=== PATIENT | female | born 1990 | race Caucasian/White ===

== ENCOUNTER 2018-01-24 09:50 | Emergency (ER) | payer OTHER ==
[2018-01-24 10:00] VITALS: RESP 18
--- NOTE | 2018-01-24 10:27 | ED ---
Female Urogenital HPI - General Chief complaint: Vaginal Bleeding Stated complaint: Vaginal Bleeding 7-8 weeks Time Seen by Provider: 01/24/18 10:10 Source: patient Mode of arrival: ambulatory Limitations: no limitations - History of Present Illness Initial comments: Patient is a 27-year-old who presents with a chief complaint of vaginal bleeding, approximately 6-1/2 weeks . Patient states of the bleeding started on Tuesday. She thinks that it started because she was on her feet most of the day. Since that time the bleeding become somewhat heavier. Today's first day she has worn anyone and states that she has not had to change yet. Patient cannot identify any other inciting factors. There are no aggravating or alleviating factors. The patient denies pain. Patient states that she believes her blood type is O+. Patient has a history of anxiety and depression though she does not currently take any medications secondary to her . Patient does take vitamins daily. Last Menstrual Period: 12/06/17 - Related Data Home Medications Medication Instructions Recorded Confirmed No Known Home Medications [No 01/24/18 01/24/18 Known Home Medications] Allergies Allergy/AdvReac Type Severity Reaction Status Date / Time No Known Allergies Allergy Verified 01/24/18 10:32 Review of Systems ROS Statement: Those systems with pertinent positive or pertinent negative responses have been documented in the HPI. ROS Other: All systems not noted in ROS Statement are negative. Genitourinary: Reports: other (vaginal bleeding) Past Medical History Past Medical History: No Reported History History of Any Multi-Drug Resistant Organisms: None Reported Additional Past Surgical History / Comment(s): arthroscopy rt knee Past Anesthesia/Blood Transfusion Reactions: No Reported Reaction Past Psychological History: No Psychological Hx Reported Smoking Status: Never smoker Past Alcohol Use History: None Reported Past Drug Use History: None Reported General Exam Limitations: no limitations General appearance: alert, in no apparent distress Head exam: Present: atraumatic, normocephalic Eye exam: Present: normal appearance ENT exam: Present: normal exam, mucous membranes moist Neck exam: Present: normal inspection Respiratory exam: Present: normal lung sounds bilaterally. Absent: respiratory distress, wheezes Cardiovascular Exam: Present: regular rate, normal rhythm GI/Abdominal exam: Present: soft. Absent: distended, tenderness Rectal exam: Present: deferred Extremities exam: Present: normal inspection Back exam: Present: normal inspection Neurological exam: Present: alert, oriented X3 Psychiatric exam: Present: normal affect, normal mood Skin exam: Present: warm, dry, intact Course Vital Signs 01/24/18 01/24/18 09:58 11:58 Temperature 97.5 F L 98.5 F Pulse Rate 95 94 Respiratory 18 18 Rate Blood Pressure 119/72 115/72 O2 Sat by Pulse 98 100 Oximetry Medical Decision Making - Medical Decision Making Patient presents with chief complaint vaginal bleeding. On initial evaluation, vital signs are stable, patient is in no acute distress. Patient to be evaluated basic labs, blood type, and ultrasound. 12:45 PM E evaluation this patient is unremarkable. Beta-hCG is 199. Ultrasound does not show any evidence of an intrauterine , there is no evidence at this time of ectopic . I discussed results with the patient. I discussed the options of either early , or miscarriage. Patient was instructed to follow-up with her [facility] and primary care in 1-2 days. The patient will be given a prescription for repeat beta hCG in 48 hours. Patient was instructed to return to the emergency department if her symptoms worsen or change. - Lab Data Result diagrams: 01/24/18 10:22 01/24/18 10:22 Lab Results 01/24/18 01/24/18 01/24/18 Range/Units 10:22 10:22 10:22 WBC 4.9 (3.8-10.6) k/uL RBC 5.37 (3.80-5.40) m/uL Hgb 15.8 (11.4-16.0) gm/dL Hct 44.8 (34.0-46.0) % MCV 83.6 (80.0-100.0) fL MCH 29.4 (25.0-35.0) pg MCHC 35.2 (31.0-37.0) g/dL RDW 12.2 (11.5-15.5) % Plt Count 261 (150-450) k/uL Neutrophils % 65 % Lymphocytes % 22 % Monocytes % 8 % Eosinophils % 3 % Basophils % 1 % Neutrophils # 3.2 (1.3-7.7) k/uL Lymphocytes # 1.1 (1.0-4.8) k/uL Monocytes # 0.4 (0-1.0) k/uL Eosinophils # 0.1 (0-0.7) k/uL Basophils # 0.0 (0-0.2) k/uL Sodium 141 (137-145) mmol/L Potassium 3.7 (3.5-5.1) mmol/L Chloride 106 (98-107) mmol/L Carbon Dioxide 22 (22-30) mmol/L Anion Gap 13 mmol/L BUN 12 (7-17) mg/dL Creatinine 0.72 (0.52-1.04) mg/dL Est GFR (CKD-EPI)AfAm >90 (>60 ml/min/1.73 sqM) Est GFR (CKD-EPI)NonAf >90 (>60 ml/min/1.73 sqM) Glucose 127 H (74-99) mg/dL Calcium 8.9 (8.4-10.2) mg/dL HCG, Quant mIU/mL Urine Color Urine Appearance (Clear) Urine pH (5.0-8.0) Ur Specific [place] (1.001-1.035) Urine Protein (Negative) Urine Glucose (UA) (Negative) Urine Ketones (Negative) Urine Blood (Negative) Urine Nitrite (Negative) Urine Bilirubin (Negative) Urine Urobilinogen (<2.0) mg/dL Ur Leukocyte Esterase (Negative) Urine RBC (0-5) /hpf Urine WBC (0-5) /hpf Ur Squamous Epith Cells (0-4) /hpf Urine Bacteria (None) /hpf Urine Mucus (None) /hpf Blood Type O Positive Blood Type Recheck No 01/24/18 01/24/18 Range/Units 10:22 10:31 WBC (3.8-10.6) k/uL RBC (3.80-5.40) m/uL Hgb (11.4-16.0) gm/dL Hct (34.0-46.0) % MCV (80.0-100.0) fL MCH (25.0-35.0) pg MCHC (31.0-37.0) g/dL RDW (11.5-15.5) % Plt Count (150-450) k/uL Neutrophils % % Lymphocytes % % Monocytes % % Eosinophils % % Basophils % % Neutrophils # (1.3-7.7) k/uL Lymphocytes # (1.0-4.8) k/uL Monocytes # (0-1.0) k/uL Eosinophils # (0-0.7) k/uL Basophils # (0-0.2) k/uL Sodium (137-145) mmol/L Potassium (3.5-5.1) mmol/L Chloride (98-107) mmol/L Carbon Dioxide (22-30) mmol/L Anion Gap mmol/L BUN (7-17) mg/dL Creatinine (0.52-1.04) mg/dL Est GFR (CKD-EPI)AfAm (>60 ml/min/1.73 sqM) Est GFR (CKD-EPI)NonAf (>60 ml/min/1.73 sqM) Glucose (74-99) mg/dL Calcium (8.4-10.2) mg/dL HCG, Quant 199.5 mIU/mL Urine Color Yellow Urine Appearance Clear (Clear) Urine pH 6.0 (5.0-8.0) Ur Specific [place] 1.024 (1.001-1.035) Urine Protein 1+ H (Negative) Urine Glucose (UA) Negative (Negative) Urine Ketones Negative (Negative) Urine Blood Large H (Negative) Urine Nitrite Negative (Negative) Urine Bilirubin Negative (Negative) Urine Urobilinogen 4.0 (<2.0) mg/dL Ur Leukocyte Esterase Small H (Negative) Urine RBC 13 H (0-5) /hpf Urine WBC 6 H (0-5) /hpf Ur Squamous Epith Cells 5 H (0-4) /hpf Urine Bacteria Rare H (None) /hpf Urine Mucus Many H (None) /hpf Blood Type Blood Type Recheck Disposition Clinical Impression: Vaginal bleeding Disposition: HOME SELF-CARE Condition: Good Instructions: Threatened Miscarriage (ED) Is patient prescribed a controlled substance at d/c from ED?: No Referrals: Gilbert Sawant DO [Primary Care Provider] - 1-2 days Kim Mcdowell MD [STAFF PHYSICIAN] - 1-2 days
[2018-01-24 10:29] LABS: Basophils % (A) 1 %; Eosinophils # (A) 0.1 k/uL (0-0.7); Eosinophils % (A) 3 %; HCT 44.8 % (34.0-46.0); HGB 15.8 gm/dL (11.4-16.0); Lymphocytes # (A) 1.1 k/uL (1.0-4.8); Lymphocytes % (A) 22 %; MCH 29.4 pg (25.0-35.0); MCHC 35.2 g/dL (31.0-37.0); MCV 83.6 fL (80.0-100.0); Mean Platelet Volume 7.2; Monocytes # (A) 0.4 k/uL (0-1.0); Monocytes % (A) 8 %; Neutrophils # (A) 3.2 k/uL (1.3-7.7); Neutrophils % (A) 65 %; Platelet Count 261 k/uL (150-450); RBC 5.37 m/uL (3.80-5.40); RDW 12.2 % (11.5-15.5); WBC 4.9 k/uL (3.8-10.6)
[2018-01-24 10:39] LABS: Anion Gap 13 mmol/L; Blood Urea Nitrogen 12 mg/dL (7-17); Calcium 8.9 mg/dL (8.4-10.2); Carbon Dioxide 22 mmol/L (22-30); Chloride 106 mmol/L (98-107); Glucose 127 mg/dL (74-99); Potassium 3.7 mmol/L (3.5-5.1); Sodium 141 mmol/L (137-145)
[2018-01-24 11:00] LABS: Appearance,Urine Clear (Clear); Bacteria,Urine Rare /hpf; Bilirubin,Urine Negative (Negative); Blood,Urine Large (Negative); Color,Urine Yellow; Glucose,Urine (UA) Negative (Negative); Ketones,Urine Negative (Negative); Leukocyte Esterase,Urine Small (Negative); Mucus,Urine Many /hpf; Nitrite,Urine Negative (Negative); Protein,Urine 1+ (Negative); RBC,Urine 13 /hpf (0-5); Specific Gravity,Urine 1.024 (1.001-1.035); Squamous Epithelial Cell,Urine 5 /hpf (0-4); WBC,Urine 6 /hpf (0-5)
--- NOTE | 2018-01-24 11:36 | US ---
EXAMINATION TYPE: Ultrasound OB <= 14 weeks transvaginal DATE OF EXAM: 12/20/17 COMPARISON: NONE CLINICAL HISTORY: 27-year-old female Pain. Spotting and cramping x 4 days EXAM PERFORMED: Multiple transabdominal sonographic images of the pelvis are obtained. Transvaginal scanning was medically necessary to better evaluate the anatomy. FINDINGS: EXAM MEASUREMENTS: GESTATIONAL AGE / DATING Physician Established: Not established yet Dates by LMP: (7 weeks/0 days) EDC: 09/12/2018 Dates by First Scan: This is 1st scan Dates by Current Scan for: No IUP seen at this time MATERNAL ANATOMY Uterus: 7.8 x 4.4 x 5.6cm, anteverted Endometrium: 0.7cm, tiny amount of fluid seen within endocervical canal Right Ovary: 3.1 x 1.5 x 1.9cm Left Ovary: 2.6 x 1.7 x 1.9cm Post CDS / Adnexa: no Presence of free fluid: no Presence of corpus luteal cyst: not seen Presence of subchorionic bleed: no GESTATION / SURVEY IUP: No IUP seen at this time Date of LMP: 12/06/2017 Beta HcG (if available): Not available at time of exam IMPRESSION: 1. No visualized intrauterine . Differential considerations include failed , nonvis ualized ectopic , and too early to visualize intrauterine . Note that a gestational sac should be seen by transvaginal scanning at a beta hCG of 2000. Clinical correlation is recommend ed. Recommended serial beta-hCG and ultrasound follow-up as clinically indicated. 2. Small amount of fluid within the endocervical canal.
[2018-01-24 13:10] VITALS: BP 111/62; PULSE 96; TEMP 98.3
== END 2018-01-24 13:09 | disposition home or self-care (01) ==
LOC: EC 09:50
DX: O20.9 Hemorrhage in early pregnancy, unspecified (principal); Z79.899 Other long term (current) drug therapy; Z3A.01 Less than 8 weeks gestation of pregnancy
CPT/HCPCS: 36415; 76801; 76817; 80048; 81001; 84702; 85025; 86900; 86901; 99284

== ENCOUNTER → 2018-11-15 | Outpatient (CLI) | payer OTHER ==
--- NOTE | 2018-11-15 13:18 | CT ---
EXAMINATION TYPE: CT abdomen w con DATE OF EXAM: 11/15/2018 COMPARISON: 06/02/2016 INDICATION: RUQ Abdominal pain DLP: 1019 mGycm, Automated exposure control for dose reduction was used. CONTRAST: 100 ml mL of Isovue 300. Study performed with Oral Contrast TECHNIQUE: Axial images were obtained from above the diaphragm to the pubic rami in the axial plane a t 5 mm thick sections. Reconstructed images are reviewed on the computer in the coronal plane. FINDINGS: Limited CT sections are obtained the lung bases. The lung bases are clear. CT ABDOMEN: Liver: Normal Spleen: Normal Pancreas: Normal Adrenal glands: The adrenal glands are normal. Gallbladder: Normal Kidneys: No masses are evident. No hydronephrosis is present. No suspicious cysts are identified. Delayed images were obtained through the kidneys, which remain unremarkable. Aorta: Vascular calcification is within the aorta. Inferior vena cava: Normal. Loops of bowel within the abdomen and upper pelvis are normal. There are loops of bowel which are incompletely distended or lack oral contrast limiting their evaluation. Appendix: Normal as visualized. IMPRESSIONS: 1. Unremarkable CT abdomen. 2. No suspicious changes to account for right upper quadrant pain
== END | disposition home or self-care (01) ==
LOC: RADCTMAIN 08:16
PROVIDERS: ATTEND Family Medicine
DX: R10.11 Right upper quadrant pain (principal)
CPT/HCPCS: 74160; Q9967

== ENCOUNTER → 2018-11-21 | Outpatient (CLI) | payer OTHER | END | disposition home or self-care (01) | LOC: LABWHC1 10:59 | PROVIDERS: ATTEND Obstetrics & Gynecology | DX: Z34.80 Encounter for supervision of other normal pregnancy, unspecified trimester (principal); Z3A.00 Weeks of gestation of pregnancy not specified | CPT/HCPCS: 36415; 84702 ==

== ENCOUNTER → 2018-12-14 | Outpatient (CLI) | payer OTHER ==
--- NOTE | 2018-12-14 15:54 | US ---
EXAMINATION TYPE: US pelvis complete transvag DATE OF EXAM: 12/14/2018 COMPARISON: NONE CLINICAL HISTORY: E28.8 Other ovarian dysfunction. Not having periods weight gain. TECHNIQUE: Transvaginal (TV) and Transabdominal (TA) . Transabdominal sonographic images of the pel vis were acquired. Transvaginal sonographic images were medically necessary to better assess the fol lowing anatomy: Ovaries. EXAM MEASUREMENTS: Uterus: 9.6 x 4.1 x 5.4 cm Endometrial Stripe: 0.4 cm Right Ovary: 1.7 x 1.6 x 1.9 cm Left Ovary: 2.3 x 1.7 x 2.0 cm 1. Uterus: Anteverted Hypoechoic area with vascularity 1.3 x .7 x 1.6cm. 2. Endometrium: wnl 3. Right Ovary: Follicles seen 4. Left Ovary: Follicles seen 5. Bilateral Adnexa: wnl 6. Posterior cul-de-sac: wnl IMPRESSION: 1. Probable uterine leiomyoma. 2. Small ovarian follicles.
== END | disposition home or self-care (01) ==
LOC: RADUSWWP 14:58
PROVIDERS: ATTEND Family Medicine
DX: E28.8 Other ovarian dysfunction (principal)
CPT/HCPCS: 76830; 76856

== ENCOUNTER 2019-05-29 16:44 | Emergency (ER) | payer OTHER ==
[2019-05-29] MEDS ORDERED: SODIUM CHLORIDE 0.9% 2,000 ML IV STA (17:09)
[2019-05-29] MEDS ORDERED: METOCLOPRAMIDE 5 MG/ML 2 ML VIAL IVP STA (17:17)
[2019-05-29 17:29] LABS: Basophils # (A) 0.1 k/uL (0-0.2); Basophils % (A) 1 %; Eosinophils # (A) 0.1 k/uL (0-0.7); Eosinophils % (A) 1 %; HCT 45.7 % (34.0-46.0); HGB 15.8 gm/dL (11.4-16.0); Lymphocytes # (A) 1.9 k/uL (1.0-4.8); Lymphocytes % (A) 15 %; MCH 29.9 pg (25.0-35.0); MCHC 34.5 g/dL (31.0-37.0); MCV 86.6 fL (80.0-100.0); Mean Platelet Volume 6.9; Monocytes # (A) 0.4 k/uL (0-1.0); Monocytes % (A) 3 %; Neutrophils # (A) 10.3 k/uL (1.3-7.7); Neutrophils % (A) 79 %; Platelet Count 331 k/uL (150-450); RBC 5.27 m/uL (3.80-5.40); RDW 12.7 % (11.5-15.5)
--- NOTE | 2019-05-29 17:29 | ED ---
Nausea/Vomiting/Diarrhea HPI - General Chief complaint: Nausea/Vomiting/Diarrhea Stated complaint: Not eating/drinking Time Seen by Provider: 05/29/19 16:52 Source: patient, RN notes reviewed, old records reviewed Mode of arrival: ambulatory Limitations: no limitations - History of Present Illness Initial comments: Patient is a 29-year-old female presents emergency department today with chief complaints of nausea and vomiting 3 days. Patient reports she recently found she was she is possibly 8-12 weeks. She reports her first appointment with her [facility] is tomorrow. She states she is following with Dr. Marinelli. Patient is a female. Patient reports that she has had no vaginal bleeding or discharge. She reports that she was having vomiting and became to the point where she was having dry heaves. Patient states that she has had no dysuria. - Related Data Previous Rx's Medication Instructions Recorded Cephalexin [Keflex] 500 mg PO Q6HR 3 Days #12 cap 05/29/19 Metoclopramide HCl [Reglan] 5 mg PO TID #10 tablet 05/29/19 Allergies Allergy/AdvReac Type Severity Reaction Status Date / Time acetaminophen [From Vicodin] AdvReac Abdominal Verified 05/29/19 16:58 Pain hydrocodone [From Vicodin] AdvReac Abdominal Verified 05/29/19 16:58 Pain Review of Systems ROS Statement: Those systems with pertinent positive or pertinent negative responses have been documented in the HPI. ROS Other: All systems not noted in ROS Statement are negative. Past Medical History Past Medical History: No Reported History Additional Past Medical History / Comment(s): PCOS History of Any Multi-Drug Resistant Organisms: None Reported Additional Past Surgical History / Comment(s): arthroscopy rt knee Past Anesthesia/Blood Transfusion Reactions: No Reported Reaction Past Psychological History: No Psychological Hx Reported Smoking Status: Never smoker Past Alcohol Use History: None Reported Past Drug Use History: None Reported General Exam - General Exam Comments Initial Comments: 29-year-old female. Alert and oriented. No distress. Limitations: no limitations General appearance: alert, in no apparent distress Head exam: Present: atraumatic, normocephalic, normal inspection Eye exam: Present: normal appearance, PERRL, EOMI. Absent: scleral icterus, conjunctival injection, periorbital swelling ENT exam: Present: normal exam, mucous membranes moist Neck exam: Present: normal inspection. Absent: tenderness, meningismus, lymphadenopathy Respiratory exam: Present: normal lung sounds bilaterally. Absent: respiratory distress, wheezes, rales, rhonchi, stridor Cardiovascular Exam: Present: regular rate, normal rhythm, normal heart sounds. Absent: systolic murmur, diastolic murmur, rubs, gallop, clicks GI/Abdominal exam: Present: soft, normal bowel sounds. Absent: distended, tenderness, guarding, rebound, rigid Extremities exam: Present: normal inspection, full ROM, normal capillary refill. Absent: tenderness, pedal edema, joint swelling, calf tenderness Back exam: Present: normal inspection Neurological exam: Present: alert, oriented X3, CN II-XII intact Psychiatric exam: Present: normal affect, normal mood Skin exam: Present: warm, dry, intact, normal color. Absent: rash Course Vital Signs 05/29/19 16:46 Temperature 98.1 F Pulse Rate 73 Respiratory 20 Rate Blood Pressure 116/80 O2 Sat by Pulse 99 Oximetry Medical Decision Making - Medical Decision Making Plan will feel presents emergency rubs had nausea and vomiting related to , she reports she is approximately 8-12 weeks . She states that she's been having no significant abdominal pain when she is vomiting or retching she does have some shooting pains across the abdomen. At this time patient's labwork was reviewed to show evidence of some leukocytosis. Likely secondary to vomiting. Urinalysis positive for ketones Patient had white blood cells. Urine culture will be completed. We'll start the Patient on Keflex at this time. Patient is given 2 L bolus and reevaluate states she is feeling much better. Ultrasound shows viable IUP with cardiac activity 1 59 bpm. Also considered a small subchorionic hemorrhage measuring 5.2 mm and the second one 1.2 mm. At this time she's of vaginal bleeding. I discussed she can follow-up with this with her OB. Patient states that she will follow-up with her primary care physician and [facility] as she does have an appointment tomorrow. Patient had all of her questions ANSWERED. - Lab Data Result diagrams: 05/29/19 17:00 05/29/19 17:00 Lab Results 05/29/19 05/29/19 05/29/19 Range/Units 17:00 17:00 17:00 WBC 13.0 H (3.8-10.6) k/uL RBC 5.27 (3.80-5.40) m/uL Hgb 15.8 (11.4-16.0) gm/dL Hct 45.7 (34.0-46.0) % MCV 86.6 (80.0-100.0) fL MCH 29.9 (25.0-35.0) pg MCHC 34.5 (31.0-37.0) g/dL RDW 12.7 (11.5-15.5) % Plt Count 331 (150-450) k/uL Neutrophils % 79 % Lymphocytes % 15 % Monocytes % 3 % Eosinophils % 1 % Basophils % 1 % Neutrophils # 10.3 H (1.3-7.7) k/uL Lymphocytes # 1.9 (1.0-4.8) k/uL Monocytes # 0.4 (0-1.0) k/uL Eosinophils # 0.1 (0-0.7) k/uL Basophils # 0.1 (0-0.2) k/uL Sodium 137 (137-145) mmol/L Potassium 4.1 (3.5-5.1) mmol/L Chloride 102 (98-107) mmol/L Carbon Dioxide 24 (22-30) mmol/L Anion Gap 11 mmol/L BUN 13 (7-17) mg/dL Creatinine 0.66 (0.52-1.04) mg/dL Est GFR (CKD-EPI)AfAm >90 (>60 ml/min/1.73 sqM) Est GFR (CKD-EPI)NonAf >90 (>60 ml/min/1.73 sqM) Glucose 88 (74-99) mg/dL Calcium 9.9 (8.4-10.2) mg/dL Total Bilirubin 0.6 (0.2-1.3) mg/dL AST 24 (14-36) U/L ALT 20 (9-52) U/L Alkaline Phosphatase 105 (38-126) U/L Total Protein 7.6 (6.3-8.2) g/dL Albumin 4.2 (3.5-5.0) g/dL Amylase 59 (30-110) U/L Lipase 107 (23-300) U/L Urine Color Urine Appearance (Clear) Urine pH (5.0-8.0) Ur Specific [place] (1.001-1.035) Urine Protein (Negative) Urine Glucose (UA) (Negative) Urine Ketones (Negative) Urine Blood (Negative) Urine Nitrite (Negative) Urine Bilirubin (Negative) Urine Urobilinogen (<2.0) mg/dL Ur Leukocyte Esterase (Negative) Urine RBC (0-5) /hpf Urine WBC (0-5) /hpf Ur Squamous Epith Cells (0-4) /hpf Urine Bacteria (None) /hpf Urine Mucus (None) /hpf Blood Type O Positive Blood Type Recheck O Pos Bld Type Recheck Status No 05/29/19 Range/Units 17:41 WBC (3.8-10.6) k/uL RBC (3.80-5.40) m/uL Hgb (11.4-16.0) gm/dL Hct (34.0-46.0) % MCV (80.0-100.0) fL MCH (25.0-35.0) pg MCHC (31.0-37.0) g/dL RDW (11.5-15.5) % Plt Count (150-450) k/uL Neutrophils % % Lymphocytes % % Monocytes % % Eosinophils % % Basophils % % Neutrophils # (1.3-7.7) k/uL Lymphocytes # (1.0-4.8) k/uL Monocytes # (0-1.0) k/uL Eosinophils # (0-0.7) k/uL Basophils # (0-0.2) k/uL Sodium (137-145) mmol/L Potassium (3.5-5.1) mmol/L Chloride (98-107) mmol/L Carbon Dioxide (22-30) mmol/L Anion Gap mmol/L BUN (7-17) mg/dL Creatinine (0.52-1.04) mg/dL Est GFR (CKD-EPI)AfAm (>60 ml/min/1.73 sqM) Est GFR (CKD-EPI)NonAf (>60 ml/min/1.73 sqM) Glucose (74-99) mg/dL Calcium (8.4-10.2) mg/dL Total Bilirubin (0.2-1.3) mg/dL AST (14-36) U/L ALT (9-52) U/L Alkaline Phosphatase (38-126) U/L Total Protein (6.3-8.2) g/dL Albumin (3.5-5.0) g/dL Amylase (30-110) U/L Lipase (23-300) U/L Urine Color Yellow Urine Appearance Cloudy H (Clear) Urine pH 6.5 (5.0-8.0) Ur Specific [place] 1.030 (1.001-1.035) Urine Protein 1+ H (Negative) Urine Glucose (UA) Negative (Negative) Urine Ketones 3+ H (Negative) Urine Blood Negative (Negative) Urine Nitrite Negative (Negative) Urine Bilirubin Negative (Negative) Urine Urobilinogen 3.0 (<2.0) mg/dL Ur Leukocyte Esterase Large H (Negative) Urine RBC 2 (0-5) /hpf Urine WBC 7 H (0-5) /hpf Ur Squamous Epith Cells 17 H (0-4) /hpf Urine Bacteria Few H (None) /hpf Urine Mucus Many H (None) /hpf Blood Type Blood Type Recheck Bld Type Recheck Status - Radiology Data Radiology results: report reviewed Single viable intrauterine with cardiac Mr. Lloyd is 1 59 bpm. Evidence for a small subchorionic hemorrhagic foci one measuring partly 5.2 mm and the other 1.2 mm. Disposition Clinical Impression: Nausea/vomiting in , Asymptomatic bacteriuria during Disposition: HOME SELF-CARE Condition: Good Instructions (If sedation given, give patient instructions): Acute Nausea and Vomiting (ED) Additional Instructions: Please use medication as discussed. Please follow up with OB and family doctor if symptoms have not improved over the next two days. Please return to the emergency room if your symptoms increase or worsen or for any other concerns. Prescriptions: Cephalexin [Keflex] 500 mg PO Q6HR 3 Days #12 cap Metoclopramide HCl [Reglan] 5 mg PO TID #10 tablet Is patient prescribed a controlled substance at d/c from ED?: No Referrals: Gilbert Sawant DO [Primary Care Provider] - 1-2 days Time of Disposition: 19:11
[2019-05-29 17:38] LABS: ALT 20 U/L (9-52); AST 24 U/L (14-36); African American GFR (CKD) >90 (>60 ml/min/1.73 sqM); Albumin 4.2 g/dL (3.5-5.0); Alkaline Phosphatase 105 U/L (38-126); Amylase 59 U/L (30-110); Anion Gap 11 mmol/L; Blood Urea Nitrogen 13 mg/dL (7-17); Calcium 9.9 mg/dL (8.4-10.2); Carbon Dioxide 24 mmol/L (22-30); Chloride 102 mmol/L (98-107); Glucose 88 mg/dL (74-99); Potassium 4.1 mmol/L (3.5-5.1); Sodium 137 mmol/L (137-145); Total Bilirubin 0.6 mg/dL (0.2-1.3); Total Protein 7.6 g/dL (6.3-8.2)
[2019-05-29 18:09] LABS: Appearance,Urine Cloudy (Clear); Color,Urine Yellow; Glucose,Urine (UA) Negative (Negative); PH, Urine 6.5 (5.0-8.0); Protein,Urine 1+ (Negative)
[2019-05-29 18:10] LABS: Bacteria,Urine Few /hpf; Bilirubin,Urine Negative (Negative); Blood,Urine Negative (Negative); Ketones,Urine 3+ (Negative); Leukocyte Esterase,Urine Large (Negative); Mucus,Urine Many /hpf; Nitrite,Urine Negative (Negative); RBC,Urine 2 /hpf (0-5); Squamous Epithelial Cell,Urine 17 /hpf (0-4); WBC,Urine 7 /hpf (0-5)
--- NOTE | 2019-05-29 18:52 | US ---
EXAMINATION TYPE: US OB limited DATE OF EXAM: 05/29/2019 COMPARISON: US, no comparison for this . CLINICAL HISTORY: Assess IUP heart tones. LMP unknown. . EXAM PERFORMED: Transabdominal (TA) GESTATIONAL AGE / DATING Physician Established: (Not yet established. LMP is unknown. No growth performed on today?s study per order. SURVEY HEART RATE: 159 bpm RHYTHM: Normal Incidental finding: Hypoechoic areas seen right and left of gestational sac. Right hypoechoic area me asures: 3.7 x 1.7 x 1.6 cm. Left hypoechoic area measures: 1.6 x 1.5 x 1.0 cm. IMPRESSION: SINGLE VIABLE INTRAUTERINE WITH CARDIAC ACTIVITY MEASURED AT 159 BPM. Evidence suggesting small subchorionic hemorrhagic foci, one measuring approximately 5.2 mL and the o ther measuring approximately 1.2 mL.
[2019-05-29 19:15] VITALS: PULSE 78; TEMP 98.3
[2019-05-29 19:28] VITALS: BP 117/80; RESP 14
== END 2019-05-29 19:29 | disposition home or self-care (01) ==
LOC: EC 16:44
DX: O21.9 Vomiting of pregnancy, unspecified (principal); O98.811 Other maternal infectious and parasitic diseases complicating pregnancy, first trimester; R82.71 Bacteriuria; O99.89 Other specified diseases and conditions complicating pregnancy, childbirth and the puerperium; R10.9 Unspecified abdominal pain; R82.4 Acetonuria; O20.8 Other hemorrhage in early pregnancy; Z88.5 Allergy status to narcotic agent; Z88.6 Allergy status to analgesic agent; Z3A.08 8 weeks gestation of pregnancy
CPT/HCPCS: 36415; 86900; 86901; 80053; 82150; 83690; 85025; 81001; 76815; 99284; 96374; 96361 ×2; J2765

== ENCOUNTER → 2019-06-11 | Outpatient (CLI) | payer OTHER ==
--- NOTE | 2019-06-11 17:16 | US ---
EXAMINATION TYPE: Ultrasound OB <= 14 week transvaginal DATE OF EXAM: 06/11/2019 2:49 PM COMPARISON: 05/29/2019 CLINICAL HISTORY: 29-year-old female [id number] Confirm Dates. Patient has no bleeding or cramping. EXAM PERFORMED: Transvaginal (TV) and Transabdominal (TA) FINDINGS: EXAM MEASUREMENTS: GESTATIONAL AGE / DATING Physician Established: Not yet established LMP: 02/23/19 Dates by LMP: (15 weeks/3 days) EDC: 11/30/2019 Dates by First Scan: Dating not performed on 1st scan Dates by Current Scan for: (13 weeks/ 0 days) EDC: 12/17/19 MATERNAL ANATOMY Uterus: 12.9 x 7.7 x 9.3cm Right Ovary: 2.9 x 1.6 x 2.3cm Left Ovary: obscured by bowel gas and increasing uterine size Post CDS / Adnexa: wnl Presence of free fluid: wnl Two subchorionic bleeds, seen on previous ultrasound as well, 1.)5.1 x 1.2 x 1.6cm (previously 3.7 x 1.7 x 1.6 cm), 2.) 1.3 x 0.6 x 1.0cm (previously 1.6 x 1.5 x 1.0 cm) GESTATION / SURVEY CRL: 6.7 (13 weeks/0 days) Yolk Sac (normal less than 6mm): not seen Heart Rate: 155 bpm Rhythm: Normal IUP: Viable IUP Date of LMP: 02/23/19 Beta HcG (if available): Not available IMPRESSION: 1. Single live intrauterine with estimated gestational age of 15 weeks 3 days by LMP. [facility] ultrasound biometry is smaller by 2 weeks and 3 days (at 13 weeks 0 days) by crown-rump length. 2. Two subchorionic bleeds redemonstrated, the largest measures 5.1 cm versus 3.7 cm, previously. The second is slightly smaller at 1.3 cm versus 1.6 cm, previously. 3. Appropriate continued follow-up recommended. 4. Complete survey recommended at 18-20 weeks.
== END | disposition home or self-care (01) ==
LOC: RADUSWWP 13:56
PROVIDERS: ATTEND Obstetrics & Gynecology
DX: Z36.89 Encounter for other specified antenatal screening (principal); Z3A.20 20 weeks gestation of pregnancy
CPT/HCPCS: 76801; 76817

== ENCOUNTER 2019-09-04 11:00 | Outpatient (CLI) | payer OTHER ==
[2019-09-04 12:37] LABS: Appearance,Urine Clear (Clear); Bilirubin,Urine Negative (Negative); Blood,Urine Negative (Negative); Color,Urine Yellow; Glucose,Urine (UA) 3+ (Negative); Ketones,Urine Negative (Negative); Leukocyte Esterase,Urine Negative (Negative); Nitrite,Urine Negative (Negative); Protein,Urine Trace (Negative); Urobilinogen,Urine <2.0 mg/dL (<2.0)
[2019-09-04 13:11] VITALS: BP 118/64; PULSE 95; RESP 16; TEMP 97.8
--- NOTE | 2019-09-19 00:33 | P.MSEPDOC ---
Presenting Problems - Arrival Data Date of Arrival on Unit: 09/04/19 Time of Arrival on Unit: 11:00 Mode of Transport: Ambulatory - Complaint OB-Reason for Admission/Chief Complaint: Other Medical History - Information : 7 Para: 4 Term: 4 : 0 Abortions: Spontaneous or Elective: 2 Number of Living Children: 4 - Gestational Age Gestational Age by EDITH (wks/days): 25 Weeks and 1 Days Review of Systems - Review of Systems Constitutional: No problems Breast: No problems ENT: No problems Cardiovascular: No problems Respiratory: No problems Gastrointestinal: No problems Genitourinary: No problems Musculoskeletal: No problems Neurological: No problems Skin: No problems Vital Signs - Temperature Temperature: 97.8 F Temperature Source: Oral - Pulse Right Brachial Pulse Rate: 95 Pulse Assessment Method: Automatic Cuff - Respirations Respiratory Rate: 16 Oxygen Delivery Method: Room Air O2 Sat by Pulse Oximetry: 99 - Blood Pressure Right Arm Blood Pressure: 118/64 Blood Pressure Mean: 82 Blood Pressure Source: Automatic Cuff Medical Screen Scoring (Pre) - Cervical Exam Membranes: Intact - Uterine Contractions Frequency: N/A Duration: N/A Intensity: N/A - Maternal Vital Signs Maternal Temperature: N/A Signs of Preeclampsia: N/A Maternal Respirations: N/A - Maternal Trauma Maternal Trauma: N/A - Assessment - Baby A Baseline FHR: 140 Heart Rate - NICHD Category: Category I (Normal) = 0 NST: Reactive Position: N/A Station: N/A - Total Score - Baby A Total Score - Baby A: 0 - Total Score - Baby B Total Score - Baby B: 0 - Total Score - Baby C Total Score - Baby C: 0 - Level of Risk - Baby A Level of Risk - Baby A: Low (0-5) - Level of Risk - Baby B Level of Risk - Baby B: Low (0-5) - Level of Risk - Baby C Level of Risk - Baby C: Low (0-5) Physician Notification (Pre) - Physician Notified Physician Notified Date: 09/04/19 Physician Notified Time: 12:46 New Order Received: Yes - Notification Comment Comment: Dr. Marinelli in dept. Reviewed strip. Report given. VS WNL. FFN collected. Vag exam of closed/thick/high. UA sent. Dr. Marinelli reviewed UA results. Orders recieved to d/c pt to home. Disposition - Disposition OB Disposition: Discharge to home Discharge Date: 09/04/19 Discharge Time: 12:52 I agree with the RN Medical Screening Exam: Yes Risk & Benefit of care provided described in d/c instruction: Yes Diagnosis: PAIN, UNSPECIFIED
== END 2019-09-04 13:00 | disposition home or self-care (01) ==
LOC: FBPOP 11:00
PROVIDERS: ATTEND Obstetrics & Gynecology
DX: O99.89 Other specified diseases and conditions complicating pregnancy, childbirth and the puerperium (principal); R52 Pain, unspecified; Z3A.25 25 weeks gestation of pregnancy
CPT/HCPCS: 81003; G0463; 99213

== ENCOUNTER 2019-09-27 23:45 | Inpatient (IN) | payer OTHER ==
[2019-09-28] MEDS: LACTATED RINGERS 1,000 ML IV SCH ×3 (00:43→23:35)
[2019-09-28 01:24] LABS: Appearance,Urine Clear (Clear); Bacteria,Urine Occasional /hpf; Bilirubin,Urine Negative (Negative); Blood,Urine Negative (Negative); Color,Urine Light Yellow; Glucose,Urine (UA) Negative (Negative); Ketones,Urine Negative (Negative); Leukocyte Esterase,Urine Small (Negative); Mucus,Urine Rare /hpf; Nitrite,Urine Negative (Negative); Protein,Urine Negative (Negative); RBC,Urine <1 /hpf (0-5); Specific Gravity,Urine 1.008 (1.001-1.035); Squamous Epithelial Cell,Urine 3 /hpf (0-4); Urobilinogen,Urine <2.0 mg/dL (<2.0); WBC,Urine 2 /hpf (0-5)
[2019-09-28] MEDS ORDERED: INDOMETHACIN 25 MG CAP PO SCH (02:00)
[2019-09-28] MEDS ORDERED: INDOMETHACIN 25 MG CAP PO PRN (02:00)
[2019-09-28] MEDS ORDERED: ACETAMINOPHEN TAB 325 MG TAB PO PRN (06:08)
[2019-09-28 06:18] LABS: Glucose,Whole Blood 101 mg/dL (75-99)
[2019-09-28] MEDS: BETAMET ACET-BETAMETH SOD PHOS 6 MG/ML VIAL IM SCH (06:42)
--- NOTE | 2019-09-28 08:01 | US ---
EXAMINATION TYPE: US OB >= 14 wk fetus DATE OF EXAM: 09/28/2019 COMPARISON: First trimester ultrasound June 11, 2019. CLINICAL HISTORY: labor; gestational diabetes; TECHNIQUE: Transabdominal (TA) GESTATIONAL AGE / DATING Physician Established: (28 weeks/4 days) EDC: 12/17/2019 Dates by First Scan: (28 weeks/4 days) EDC: 12/17/2019 Dates by Current Scan: (28 weeks/5 days) EDC: 12/16/2019 Beta HCG (if available): NA SURVEY IUP: Single PLACENTA: Anterior PREVIA: No Previa HOA: 16.5 cm Normal CERVICAL LENGTH (transabdominal: norm > 3.0cm): 3.5 cm BIOMETRY PRESENTATION: Vertex LIE: Longitudinal BPD: 7.4 cm 29 weeks / 4 days HC: 27.0 cm 29 weeks / 3 days AC: 24.3 cm 28 weeks / 4 days FL: 5.5 cm 29 weeks / 0 days ESTIMATED WEIGHT IN GRAMS: 1297.0 grams ESTIMATED WEIGHT IN LBS/OZ: 2 lbs. 14 oz. WEIGHT PERCENTAGE BASED ON ESTABLISHED DATES: 48.0% HC/AC: 1.11 Normal FL/AC: 22.57 Normal HEART RATE: 137 bpm RHYTHM: Normal Single, viable, IUP,(28 weeks/5 days, EDC: 12/16/2019, HR 137bpm; cervix length is wnl. Single live intrauterine gestation redemonstrated. Normal cephalad presentation on current study seen . No suspicious cervical thinning. No placenta previa. Amniotic fluid index calculated within normal limits. biometry measurements are congruent and thought within normal limits. IMPRESSION: As above.
[2019-09-28] MEDS: INDOMETHACIN 25 MG CAP PO SCH ×3 (08:18→19:33)
--- NOTE | 2019-09-28 08:32 | P.HPOB ---
History of Present Illness H&P Date: 09/28/19 Chief Complaint: contractions 29 year old presents at 28 weeks 4 days with contractions. fibronectin was negative. She was gilson every 3-5 minutes. heart tones 130 with moderate variability and reactive. Cervix is dilated 1-2 cm, uneffaced, -3 station. Review of Systems All systems: negative Constitutional: Denies chills, Denies fever Eyes: denies blurred vision, denies pain Ears, nose, mouth and throat: Denies headache, Denies sore throat Cardiovascular: Denies chest pain, Denies shortness of breath Respiratory: Denies cough Gastrointestinal: Denies abdominal pain, Denies diarrhea, Denies nausea, Denies vomiting Genitourinary: Denies dysuria, Denies hematuria Musculoskeletal: Denies myalgias Integumentary: Denies pruritus, Denies rash Neurological: Denies numbness, Denies weakness Psychiatric: Denies anxiety, Denies depression Endocrine: Denies fatigue, Denies weight change Past Medical History Past Medical History: No Reported History Additional Past Medical History / Comment(s): PCOS. Obstetric history: She has had one elective and one spontaneous , she's had 4 vaginal deliveries. This is her seventh . She's had care with me since beginning . She was initially diagnosed with gestational diabetes has not been timing from yet that she was supposed to go today. History of Any Multi-Drug Resistant Organisms: None Reported Additional Past Surgical History / Comment(s): arthroscopy rt knee. exploratory laparotomy Past Anesthesia/Blood Transfusion Reactions: No Reported Reaction Past Psychological History: Anxiety, Depression Smoking Status: Never smoker Past Alcohol Use History: None Reported Past Drug Use History: None Reported - Past Family History Father Family Medical History: Diabetes Mellitus Medications and Allergies Allergies Allergy/AdvReac Type Severity Reaction Status Date / Time acetaminophen [From Vicodin] AdvReac Abdominal Verified 09/28/19 00:00 Pain hydrocodone [From Vicodin] AdvReac Abdominal Verified 09/28/19 00:00 Pain Exam Osteopathic Statement: *. No significant issues noted on an osteopathic s tructural exam other than those noted in the History and Physical/Consult. Vital Signs Temp Pulse Resp BP Pulse Ox 09/28/19 00:01 97.3 F L 95 16 134/88 99 Intake and Output 01/06/0809/28/19 09/28/19 22:59 06:59 14:59 Other: Weight 97.069 kg Heart: Regular rate and rhythm Lungs: Clear to auscultation bilaterally Abdomen: Soft, nontender Extremities: Negative Homans sign Results Abnormal Lab Results - Last 24 Hours (Table) 09/28/19 09/28/19 Range/Units 00:08 06:16 POC Glucose (mg/dL) 101 H (75-99) mg/dL Ur Leukocyte Esterase Small H (Negative) Urine Bacteria Occasional H (None) /hpf Urine Mucus Rare H (None) /hpf Assessment and Plan (1) labor Current Visit: Yes Status: Acute Code(s): O60.00 - LABOR WITHOUT DELIVERY, UNSPECIFIED TRIMESTER SNOMED Code(s): 5473206 Plan: 1. Patient admitted to [facility] [place] Dr. Kim for labor. She was started on a course of Indocin 50 mg every 6 hours for 7 doses. An HOA was done today fluid level is 16 cm. She was given a dose of Celestone and will have another dose in 24 hours. I will be following her sugars though they are likely be elevated due to the Celestone. I will call [facility] and discuss her diabetes and her sugars as well as her labor condition. Dr. Winters is covering for me this weekend and will likely be the one to continue managing care on this patient.
[2019-09-28 10:22] LABS: Glucose,Whole Blood 170 mg/dL (75-99)
[2019-09-28] MEDS: PRENATAL VIT-IRON-FOLIC ACID 1 EACH CAP PO SCH (15:06)
[2019-09-28 15:31] LABS: African American GFR (CKD) >90 (>60 ml/min/1.73 sqM); Non-African American GFR(CKD) >90 (>60 ml/min/1.73 sqM)
[2019-09-28 16:15] LABS: Glucose,Whole Blood 146 mg/dL (75-99)
[2019-09-28] MEDS: INSULIN ASPART (NovoLOG) 100 UNIT/ML VIAL SQ SCH ×4 (16:51→22:44)
[2019-09-28 19:24] LABS: Glucose,Whole Blood 164 mg/dL (75-99)
[2019-09-28 22:28] LABS: Glucose,Whole Blood 171 mg/dL (75-99)
[2019-09-29] MEDS: INDOMETHACIN 25 MG CAP PO SCH ×3 (03:01→14:33)
[2019-09-29] MEDS: BETAMET ACET-BETAMETH SOD PHOS 6 MG/ML VIAL IM SCH (06:49)
[2019-09-29 06:54] LABS: Glucose,Whole Blood 120 mg/dL (75-99)
--- NOTE | 2019-09-29 07:48 | P.PN ---
Progress Note - Text Progress Note Date: 09/29/19 Hospital day #2. Patient is 28-5/7 weeks gestation admitted yesterday with contractions. Patient was given Indocin and her contractions have subsided. Patient also was recently diagnosed with gestational diabetes and reviewing her blood sugars indicates that she needed insulin therapy. Patient also was given Celestone which unfortunately affect her serum glucose. Reviewing her sugar shows her postprandials are elevated 160-170 and her fasting blood sugar this morning was 120. For this reason, I'm going to begin NPH insulin tonight. I also revised her sliding scale in an effort to lower her postprandial blood sugars. Patient needs diabetic instruction and education and unfortunately this is not available at this time therefore she will be continued to be watched as an inpatient in an effort to control her blood sugars. I had a long discussion with the patient about concerns and need for glucose regulation and she completely understands. So in summary, plan is to be institute NPH and to increase her sliding scale insulin today. We'll attempt to get diabetic education instruction.
[2019-09-29 09:36] LABS: Glucose,Whole Blood 143 mg/dL (75-99)
[2019-09-29] MEDS: INSULIN ASPART (NovoLOG) 100 UNIT/ML VIAL SQ SCH ×4 (09:41→22:13)
[2019-09-29] MEDS: PRENATAL VIT-IRON-FOLIC ACID 1 EACH CAP PO SCH (09:44)
[2019-09-29 14:26] LABS: Glucose,Whole Blood 194 mg/dL (75-99)
[2019-09-29 15:01] VITALS: BMI 35.6
[2019-09-29 20:11] LABS: Glucose,Whole Blood 195 mg/dL (75-99)
[2019-09-29] MEDS ORDERED: INSULIN NPH 300 UNIT/3 ML VIAL SQ SCH (22:00)
[2019-09-29 22:12] LABS: Glucose,Whole Blood 191 mg/dL (75-99)
[2019-09-30] MEDS: LACTATED RINGERS 1,000 ML IV SCH (01:30)
[2019-09-30 07:19] LABS: Glucose,Whole Blood 115 mg/dL (75-99)
--- NOTE | 2019-09-30 07:25 | P.PN ---
Progress Note - Text Progress Note Date: 09/30/19 Patient is resting without new complaints. Unfortunately her blood sugars still remained high she is now 24 hours out from her Celestone injection. Fasting blood sugar today is 115 and I did start NPH yesterday at 10 units going to increase that to 14 units. This may require further adjustments. Her postprandial blood sugars were routinely 190s yesterday, I am going to continue the increased sliding-scale from yesterday however they continue to be that high today she may need additional insulin. Patient received some education yesterday and she is doing better with learning how to give herself insulin. We'll continue inpatient hospitalization and glucose regulation.
[2019-09-30 09:03] VITALS: RESP 16
[2019-09-30 11:18] LABS: Glucose,Whole Blood 119 mg/dL (75-99)
[2019-09-30] MEDS: INSULIN ASPART (NovoLOG) 100 UNIT/ML VIAL SQ SCH ×2 (11:33→15:48)
[2019-09-30] MEDS: PRENATAL VIT-IRON-FOLIC ACID 1 EACH CAP PO SCH (11:37)
[2019-09-30 15:38] LABS: Glucose,Whole Blood 101 mg/dL (75-99)
[2019-09-30 15:49] VITALS: BP 109/63; PULSE 91; TEMP 98.4
[2019-09-30 20:03] LABS: Glucose,Whole Blood 114 mg/dL (75-99)
[2019-09-30] MEDS ORDERED: INSULIN NPH 300 UNIT/3 ML VIAL SQ SCH (22:00)
[2019-09-30 22:15] LABS: Glucose,Whole Blood 125 mg/dL (75-99)
[2019-10-01 05:43] LABS: Glucose,Whole Blood 101 mg/dL (75-99)
[2019-10-01 11:00] LABS: Glucose,Whole Blood 114 mg/dL (75-99)
--- NOTE | 2019-10-01 12:59 | P.DS ---
Providers Date of admission: 09/28/19 06:06 Expected date of discharge: 10/01/19 Attending physician: La Marinelli Primary care physician: La Marinelli - Discharge Diagnosis(es) (1) labor Current Visit: Yes Status: Acute Hospital Course: Patient was admitted for labor and the 28 week gestation. She had 2 doses of steroids and a course of Indocin. She is also been recently diagnosed with gestational diabetes but was unable to see MFM yet. We did start her on some nighttime insulin and a sliding scale. Her appointment with maternal- medicine is next week. While she was here she did speak with the community educator, and was taught how to give herself insulin and check her sugar properly. She is being discharged on 14 units of Humulin at night, and a sliding scale Humalog. She'll be discharged home today after she has stopped gilson and her sugars are well-controlled. Plan - Discharge Summary New Discharge Prescriptions: New Insulin NPH [humuLIN N] 14 unit SQ HS@2200 #1 vial INSULIN ASPART (NovoLOG) [NovoLOG (formulary)] 0 unit SQ ACHS #1 vial Discharge Medication List INSULIN ASPART (NovoLOG) [NovoLOG (formulary)] 0 unit SQ ACHS #1 vial 10/01/19 [Rx] Insulin NPH [humuLIN N] 14 unit SQ HS@2200 #1 vial 10/01/19 [Rx] Follow up Appointment(s)/Referral(s): La Marinelli DO [Primary Care Provider] - 1 Week Discharge Disposition: HOME SELF-CARE
== END 2019-10-01 13:45 | disposition home or self-care (01) | DRG 833 ==
LOC: FBPOP 23:45 → 4FBP 09-28 06:06
PROVIDERS: ADMIT Obstetrics & Gynecology; ATTEND Obstetrics & Gynecology
DX: O60.03 Preterm labor without delivery, third trimester (principal); O24.414 Gestational diabetes mellitus in pregnancy, insulin controlled; Z3A.28 28 weeks gestation of pregnancy; Z83.3 Family history of diabetes mellitus
CPT/HCPCS: 59025; 76805; 81001; 82565; 82731; 83036; 96360; 99214

== ENCOUNTER → 2019-10-05 | Outpatient (CLI) | payer OTHER ==
--- NOTE | 2019-10-05 11:28 | US ---
EXAMINATION TYPE: US venous doppler duplex UE LT DATE OF EXAM: 10/05/2019 COMPARISON: NONE CLINICAL HISTORY: M79.602 Pain in L arm. Pain left arm, IV 5 days ago at left lower arm SIDE PERFORMED: left Grayscale, color doppler, spectral doppler imaging performed of the deep veins of the left upper extr emity. There is normal flow, compressibility and vascular waveforms. Left Arm: No evidence of DVT. Superficial thrombus noted left cephalic lower arm IMPRESSION: 1. No sonographic evidence of deep venous thrombosis within the left upper extremity. 2. Superficial venous thrombosis seen within the left cephalic vein.
== END | disposition home or self-care (01) ==
LOC: RADUSWWP 10:22
PROVIDERS: ATTEND Obstetrics & Gynecology
DX: I82.612 Acute embolism and thrombosis of superficial veins of left upper extremity (principal)

== ENCOUNTER 2019-10-30 15:28 | Outpatient (CLI) | payer OTHER ==
[2019-10-30 16:03] LABS: Glucose,Whole Blood 93 mg/dL (75-99)
[2019-10-30 16:17] LABS: Appearance,Urine Clear (Clear); Bilirubin,Urine Negative (Negative); Blood,Urine Negative (Negative); Color,Urine Yellow; Glucose,Urine (UA) Negative (Negative); Ketones,Urine 4+ (Negative); Leukocyte Esterase,Urine Moderate (Negative); Mucus,Urine Many /hpf; Nitrite,Urine Negative (Negative); Protein,Urine 1+ (Negative); RBC,Urine 2 /hpf (0-5); Specific Gravity,Urine 1.031 (1.001-1.035); Squamous Epithelial Cell,Urine 2 /hpf (0-4); WBC,Urine 7 /hpf (0-5)
[2019-10-30] MEDS: LACTATED RINGERS 1,000 ML IV SCH ×2 (17:26→19:31)
[2019-10-30 17:40] LABS: HCT 42.9 % (34.0-46.0); HGB 14.5 gm/dL (11.4-16.0); MCH 30.8 pg (25.0-35.0); MCHC 33.9 g/dL (31.0-37.0); MCV 90.8 fL (80.0-100.0); Platelet Count 275 k/uL (150-450); RBC 4.72 m/uL (3.80-5.40); RDW 12.6 % (11.5-15.5); WBC 11.4 k/uL (3.8-10.6)
[2019-10-30 19:16] LABS: Band Neutrophils % 7 %; Eosinophils # (M) 0.11 k/uL (0-0.7); Lymphocytes # (M) 1.71 k/uL (1.0-4.8); Monocytes # (M) 1.03 k/uL (0-1.0); Neutrophils % (M) 68 %; Nucleated Red Blood Cells 0 /100 WBC (0-0); Total Cells Counted 100
[2019-10-30] MEDS ORDERED: OSELTAMIVIR 75 MG CAP PO STA (19:16)
[2019-10-30 19:41] VITALS: RESP 18
--- NOTE | 2019-10-30 20:09 | P.HPOB ---
History of Present Illness H&P Date: 10/30/19 Chief Complaint: Upper respiratory symptoms. This patient is a 29-year-old 7 para 4 female estimated date of confinement 12/17/2019 estimated gestational age 33-2/7 weeks who presented to labor and delivery with approximately 3 days of upper respiratory symptoms incl uding cough and shortness of breath. Patient states that her symptoms began Tuesday evening and became significantly worse on Tuesday such that she was unable to keep anything down. Patient did get a little better on Tuesday however today continues to have respiratory symptoms. Patient did not contact her primary virtual assistant for advertisers, Dr. Marinelli and discontinued her insulin for the last 48 hours due to concerns that she was not eating. Patient has not been checking her blood sugars as well. Patient was initially diagnosed with insulin- dependent diabetes at 28 weeks. At that time she was admitted for dilation of 1-2 cm dilated and received Celestone and institution of insulin therapy. Patient has been followed by Dr. Marinelli and by maternal medicine. Diabetes has been controlled by maternal medicine she states she's taking 22 units of insulin (NPH) in the evening and 8 units of regular after meals. On admission here patient had 4+ ketones thought to be dehydrated and had a positive influenza A swab. Patient was having irregularly irregular contractions and initial exam was 3 cm dilated by the nurse however repeat exam 1 hour later showed her to be 3-4 cm dilated. On my exam patient is 3-4 cm dilated soft and the presenting part is palpable but very high and ballotable. Patient has a history of one delivery at 36 weeks, her other 3 vaginal deliveries were all at term. heart tones are 150s and reactive without decelerations. Patient's pulse ox is normal. Temperature is 99.2 and she is slightly tachycardic. Review of Systems Constitutional: Reports as per HPI Respiratory: Reports as per HPI Genitourinary: Reports Menstruation: Reports amenorrhea Past Medical History Past Medical History: Diabetes Mellitus Additional Past Medical History / Comment(s): PCOS. Obstetric history: She has had one elective and one spontaneous , she's had 4 vaginal deliveries. History of Any Multi-Drug Resistant Organisms: None Reported Additional Past Surgical History / Comment(s): arthroscopy rt knee Past Anesthesia/Blood Transfusion Reactions: No Reported Reaction Past Psychological History: Depression Smoking Status: Never smoker Past Alcohol Use History: None Reported Past Drug Use History: None Reported - Past Family History Father Family Medical History: Diabetes Mellitus Medications and Allergies Home Medications Medication Instructions Recorded Confirmed Type INSULIN ASPART (NovoLOG) [NovoLOG 0 unit SQ ACHS #1 vial 10/01/19 10/30/19 Rx (formulary)] Insulin NPH [humuLIN N] 14 unit SQ HS@2200 #1 vial 10/01/19 10/30/19 Rx Allergies Allergy/AdvReac Type Severity Reaction Status Date / Time acetaminophen [From Vicodin] AdvReac Abdominal Verified 10/30/19 15:49 Pain hydrocodone [From Vicodin] AdvReac Abdominal Verified 10/30/19 15:49 Pain Exam Vital Signs Temp Pulse Resp BP Pulse Ox 10/30/19 19:36 99.2 F 128 H 18 120/72 98 Intake and Output 10/30/19 10/30/19 10/30/19 06:59 14:59 22:59 Intake Total 1000 Balance 1000 Intake: IV 1000 Invasive Line 1 1000 Other: # Voids 1 Weight 96.162 kg - OBG Physical Exam Abdomen: bowel sounds normal, no diffuse tenderness, no bruit present, no guarding noted, no hepatomegaly, no splenomegaly, no mass Vulva: both: normal Vagina: normal moisture, no discharge Cervix: no lesion (Cervix is 3-4 cmsoft and uneffaced presenting part is vertex and ballotable.), no discharge Uterus: enlarged Results Influenza A swab was positive. blood work shows she is O+, rubella immune, RPR nonreactive, hepatitis B is negative, Glucola was 216. Result Diagrams: 10/30/19 17:25 Abnormal Lab Results - Last 24 Hours (Table) 10/30/19 10/30/19 10/30/19 Range/Units 15:30 17:25 17:25 WBC 11.4 H (3.8-10.6) k/uL Neutrophils # (Manual) 8.50 H (1.3-7.7) k/uL Monocytes # (Manual) 1.03 H (0-1.0) k/uL Urine Protein 1+ H (Negative) Urine Ketones 4+ H (Negative) Ur Leukocyte Esterase Moderate H (Negative) Urine WBC 7 H (0-5) /hpf Urine Mucus Many H (None) /hpf Influenza Type A RNA Detected H (Not Detectd) Assessment and Plan Assessment: This is a 29-year-old 7 para 4 female 33-2/7 weeks gestation with known insulin-dependent gestational diabetes and history of pre-mature cervical dilation. Patient's had 3 days of respiratory symptoms and now has a positive influenza A swab and 4+ ketones consistent with dehydration. Patient is also having some contractions most likely secondary to dehydration. I have already given her a dose of Tamiflu 75 mg. I'm giving her IV hydration. Due to the cervical dilation and concern for delivery less than 35 weeks I have con tacted a tertiary facility ([facility]) and they have accepted her in transfer in the event she were to go on to deliver. At this point she is stable for transfer and I do not have concerns that she will deliver in transport. I have contacted the resident physician, Dr. Mckinney, and he has contacted his attending who is accepted her in transfer. I did emphasize the patient my concerns that she has not checked her blood sugar a couple days and she understands that when she is sick her blood sugars can fluctuate even more significantly. Currently her blood sugar is stable. Plan is transfer by EMS for concern for delivery, continued treatment of influenza A, and glucose regulation. (1) 33 weeks gestation of Current Visit: Yes Status: Acute Code(s): Z3A.33 - 33 WEEKS GESTATION OF SNOMED Code(s): 61970674 (2) Gestational diabetes Current Visit: No Status: Acute Code(s): O24.419 - GESTATIONAL DIABETES MELLITUS IN , UNSP CONTROL SNOMED Code(s): 23794614 (3) labor Current Visit: No Status: Acute Code(s): O60.00 - LABOR WITHOUT DELIVERY, UNSPECIFIED TRIMESTER SNOMED Code(s): 8549207 (4) Influenza A Current Visit: Yes Status: Acute Code(s): J10.1 - FLU DUE TO OTH IDENT INFLUENZA VIRUS W OTH RESP MANIFEST SNOMED Code(s): 957791887 (5) Dehydration Current Visit: Yes Status: Acute Code(s): E86.0 - DEHYDRATION SNOMED Code(s): 76783963
--- NOTE | 2019-10-30 20:15 | P.DS ---
Providers Expected date of discharge: 10/30/19 Attending physician: Ricardo Winters Primary care physician: Stated None - Discharge Diagnosis(es) (1) 33 weeks gestation of Current Visit: Yes Status: Acute (2) Gestational diabetes Current Visit: No Status: Acute (3) labor Current Visit: No Status: Acute (4) Influenza A Current Visit: Yes Status: Acute (5) Dehydration Current Visit: Yes Status: Acute Hospital Course: Please see dictated H&P for the intimate details of this patient's admission. Brief summary this is a 29-year-old 7 para 4 female 33-2/7 weeks gestation admitted to labor and delivery with 3 days of upper respiratory symptoms and inability to keep anything down. Patient was found to have a positive influenza a swab and also having contractions. Cervix on admission was 3 cm dilated and did change 3-4 cm on repeat exam. Due to the patient's prematurity, was felt best to transfer her to maternal- medicine/[facility] for care in the event of delivery. Patient was given a dose of Tamiflu. Patient was given IV hydration. heart tones are reassuring without decelerations. Patient's felt to be stable at the time of discharge to [facility]. Patient Condition at Discharge: Stable Plan - Discharge Summary New Discharge Prescriptions: No Action Insulin NPH [humuLIN N] 14 unit SQ HS@2200 #1 vial INSULIN ASPART (NovoLOG) [NovoLOG (formulary)] 0 unit SQ ACHS #1 vial Discharge Medication List INSULIN ASPART (NovoLOG) [NovoLOG (formulary)] 0 unit SQ ACHS #1 vial 10/01/19 [Rx] Insulin NPH [humuLIN N] 14 unit SQ HS@2200 #1 vial 10/01/19 [Rx] Discharge Disposition: OTHER INSTITUTION NOT DEFINED
[2019-10-30 20:17] LABS: Glucose,Whole Blood 95 mg/dL (75-99)
[2019-10-30 21:09] VITALS: BP 111/67; PULSE 129; TEMP 97.9
--- NOTE | 2019-10-31 06:42 | P.MSEPDOC ---
Presenting Problems - Arrival Data Date of Arrival on Unit: 10/30/19 Time of Arrival on Unit: 15:35 Mode of Transport: Wheelchair - Complaint OB-Reason for Admission/Chief Complaint: Acute Nausea/Vomiting Comment: n/v, congestion Medical History - Information : 7 Para: 4 Term: 3 : 1 Abortions: Spontaneous or Elective: 2 Number of Living Children: 4 - Gestational Age Gestational Age by EDITH (wks/days): 33 Weeks and 1 Days Review of Systems - Review of Systems Constitutional: Fever, Fatigue Breast: No problems ENT: Cough, Nasal congestion Cardiovascular: No problems Respiratory: No problems Gastrointestinal: No problems Genitourinary: No problems Musculoskeletal: No problems Neurological: No problems Skin: No problems Vital Signs - Temperature Temperature: 97.9 F Temperature Source: Temporal Artery Scan - Pulse Right Pulse Rate: 129 Pulse Assessment Method: Pulse Oximetry - Respirations Respiratory Rate: 18 - Blood Pressure Right Arm Blood Pressure: 111/67 Blood Pressure Mean: 81 Blood Pressure Source: Automatic Cuff Medical Screen Scoring (Pre) - Cervical Exam Dilation: 1-3 cm = 1 Effacement: More than 50% = 2 Membranes: Intact - Uterine Contractions Frequency: < 36 weeks = 6 Duration: > 40 seconds = 2 Intensity: N/A - Maternal Vital Signs Maternal Temperature: N/A Maternal Blood Pressure: N/A Signs of Preeclampsia: N/A Maternal Respirations: N/A - Maternal Trauma Maternal Trauma: N/A - Assessment - Baby A Baseline FHR: 145 Heart Rate - NICHD Category: Category I (Normal) = 0 NST: Reactive Position: N/A - Total Score - Baby A Total Score - Baby A: 11 - Total Score - Baby B Total Score - Baby B: 11 - Total Score - Baby C Total Score - Baby C: 11 - Level of Risk - Baby A Level of Risk - Baby A: High (10+) - Level of Risk - Baby B Level of Risk - Baby B: High (10+) - Level of Risk - Baby C Level of Risk - Baby C: High (10+) Physician Notification (Pre) - Physician Notified Physician Notified Date: 10/30/19 Physician Notified Time: 16:56 - Notification Comment Comment: per previous shift, dr winters was called, reported on pts c/o, s/sx. orders given. see obix. 2100- d/c via ems for transfer to [facility] Medical Screen Scoring (Post) - Cervical Exam Dilation: 1-3 cm = 1 Effacement: More than 50% = 2 - Uterine Contractions Frequency: < 36 weeks = 6 Duration: > 40 seconds = 2 Intensity: N/A - Maternal Vital Signs Maternal Temperature: N/A Maternal Blood Pressure: N/A Signs of Preeclampsia: N/A Maternal Respirations: N/A - Maternal Trauma Maternal Trauma: N/A - Assessment - Baby A Heart Rate: 150 Heart Rate - NICHD Category: Category I (Normal) = 0 NST: Reactive Position: N/A Station: N/A - Total Score Total Score - Baby A: 11 Total Score - Baby B: 11 Total Score - Baby C: 11 - Post Treatment Level of Risk Post Treatment Level of Risk - Baby A: High (10+) Physician Notification (Post) - Physician Notified Physician Notified Date: 10/30/19 Physician Notified Time: 19:30 Physician/Practitioner Notified:: kandi New Order Received: Yes - Notification Comment Comment: This RN took over care at 1900. Dr Winters has been here since that time. FHT strip reviewed. SVE performed by Dr Winters. Previous shift reported on pts s/sx of influenza, +A swab, lab results, n/v since tuesday, 4+ ketones. Plan is to transfer pt Disposition - Disposition OB Disposition: Transfer to other dept./facility Transferred to:: [facility] [place] Discharge Date: 10/30/19 Discharge Time: 21:03 I agree with the RN Medical Screening Exam: Yes Risk & Benefit of care provided described in d/c instruction: Yes Diagnosis: LABOR WITHOUT DELIVERY, THIRD TRIMESTER (See dictated H&P and transfer summary.)
== END 2019-10-30 21:03 | disposition other institution (70) ==
LOC: FBPOP 15:28
PROVIDERS: ATTEND Obstetrics & Gynecology
DX: O60.03 Preterm labor without delivery, third trimester (principal); Z3A.33 33 weeks gestation of pregnancy
CPT/HCPCS: 59025; 96360; 96361; 85025; 81001; 87502; G0463; 99214

== ENCOUNTER → 2019-11-07 | Outpatient (CLI) | payer OTHER ==
[2019-11-07 18:39] VITALS: BP 115/69; PULSE 108; RESP 18; TEMP 96.6
[2019-11-07 19:18] LABS: Calcium Oxalate Crystals,Urine Many /hpf; Mucus,Urine Moderate /hpf; Squamous Epithelial Cell,Urine 1 /hpf (0-4); WBC,Urine 2 /hpf (0-5)
[2019-11-07 19:28] LABS: Appearance,Urine Clear (Clear); Color,Urine Yellow
[2019-11-07 19:29] LABS: Bilirubin,Urine Negative (Negative); Blood,Urine Negative (Negative); Glucose,Urine (UA) Negative (Negative); Ketones,Urine Negative (Negative); Leukocyte Esterase,Urine Negative (Negative); Nitrite,Urine Negative (Negative); Protein,Urine 1+ (Negative)
--- NOTE | 2019-11-18 10:03 | P.MSEPDOC ---
Presenting Problems - Arrival Data Date of Arrival on Unit: 11/07/19 Time of Arrival on Unit: 17:40 Mode of Transport: Ambulatory - Complaint OB-Reason for Admission/Chief Complaint: Possible Onset of Labor Medical History - Information : 7 Para: 4 Term: 4 : 0 Abortions: Spontaneous or Elective: 2 Number of Living Children: 4 - Gestational Age Gestational Age by EDITH (wks/days): 34 Weeks and 3 Days - History Complications: GDM Review of Systems - Review of Systems Constitutional: No problems Breast: No problems ENT: No problems Cardiovascular: No problems Respiratory: No problems Gastrointestinal: No problems Genitourinary: No problems Musculoskeletal: No problems Neurological: No problems Skin: No problems Vital Signs - Temperature Temperature: 96.6 F Temperature Source: Temporal Artery Scan - Pulse Right Brachial Pulse Rate: 108 Pulse Assessment Method: Automatic Cuff - Respirations Respiratory Rate: 18 Oxygen Delivery Method: Room Air O2 Sat by Pulse Oximetry: 98 - Blood Pressure Right Arm Blood Pressure: 115/69 Blood Pressure Mean: 84 Blood Pressure Source: Automatic Cuff Medical Screen Scoring (Pre) - Cervical Exam Dilation: 4-7 cm = 2 Membranes: Intact - Uterine Contractions Frequency: N/A Duration: N/A Intensity: N/A - Maternal Vital Signs Maternal Temperature: N/A Maternal Blood Pressure: N/A Signs of Preeclampsia: N/A Maternal Respirations: N/A - Maternal Trauma Maternal Trauma: N/A - Assessment - Baby A Baseline FHR: 125 Heart Rate - NICHD Category: Category I (Normal) = 0 NST: Reactive Position: N/A Station: N/A - Total Score - Baby A Total Score - Baby A: 2 - Total Score - Baby B Total Score - Baby B: 2 - Total Score - Baby C Total Score - Baby C: 2 - Level of Risk - Baby A Level of Risk - Baby A: Low (0-5) - Level of Risk - Baby B Level of Risk - Baby B: Low (0-5) - Level of Risk - Baby C Level of Risk - Baby C: Low (0-5) Physician Notification (Pre) - Physician Notified Physician Notified Date: 11/07/19 Physician Notified Time: 18:00 New Order Received: Yes - Notification Comment Comment: Order for UA obtained Medical Screen Scoring (Post) - Uterine Contractions Frequency: > 5 minutes apart = 1 Duration: N/A Intensity: N/A - Maternal Vital Signs Maternal Temperature: N/A Maternal Blood Pressure: N/A Signs of Preeclampsia: N/A Maternal Respirations: N/A - Maternal Trauma Maternal Trauma: N/A - Assessment - Baby A Heart Rate: 130 Heart Rate - NICHD Category: Category I (Normal) = 0 NST: Reactive Position: N/A Station: N/A - Total Score Total Score - Baby A: 1 Total Score - Baby B: 1 Total Score - Baby C: 1 - Post Treatment Level of Risk Post Treatment Level of Risk - Baby A: Low (0-5) Post Treatment Level of Risk - Baby B: Low (0-5) Post Treatment Level of Risk - Baby C: Low (0-5) Physician Notification (Post) - Physician Notified Physician Notified Date: 11/07/19 Physician Notified Time: 19:35 Physician/Practitioner Notified:: Demetria Spoke With: Demetria New Order Received: Yes (Discharge) Disposition - Disposition OB Disposition: Discharge to home Discharge Date: 11/07/19 Discharge Time: 19:50 I agree with the RN Medical Screening Exam: Yes Risk & Benefit of care provided described in d/c instruction: Yes Diagnosis: FALSE LABOR BEFORE 37 COMPLETED WEEKS OF GEST, THIRD TRI
== END | disposition home or self-care (01) ==
LOC: FBPOP 17:37
PROVIDERS: ATTEND Obstetrics & Gynecology
DX: O47.03 False labor before 37 completed weeks of gestation, third trimester (principal); Z3A.34 34 weeks gestation of pregnancy
CPT/HCPCS: 59025; 81001; G0463; 99213

== ENCOUNTER 2019-11-19 12:31 | Outpatient (CLI) | payer OTHER ==
[2019-11-19 13:10] LABS: Glucose,Whole Blood 96 mg/dL (75-99)
[2019-11-19 13:25] VITALS: BP 112/68; RESP 18; TEMP 95.5
[2019-11-19 15:19] VITALS: PULSE 92
--- NOTE | 2019-11-20 20:23 | P.MSEPDOC ---
Presenting Problems - Arrival Data Date of Arrival on Unit: 11/19/19 Time of Arrival on Unit: 12:31 Mode of Transport: Ambulatory - Complaint OB-Reason for Admission/Chief Complaint: Possible Onset of Labor, Rule Out SROM Comment: C/O contractions and possible ROM. Medical History - Information : 7 Para: 4 Term: 4 : 0 Abortions: Spontaneous or Elective: 2 Number of Living Children: 4 - Gestational Age Gestational Age by EDITH (wks/days): 36 Weeks and 0 Days Review of Systems - Review of Systems Constitutional: No problems Breast: No problems ENT: No problems Cardiovascular: No problems Respiratory: No problems Gastrointestinal: No problems Genitourinary: No problems Musculoskeletal: No problems Neurological: No problems Skin: No problems Vital Signs - Temperature Temperature: 95.5 F Temperature Source: Temporal Artery Scan - Pulse Left Pulse Rate: 92 Pulse Assessment Method: Pulse Oximetry - Respirations Respiratory Rate: 18 Oxygen Delivery Method: Room Air O2 Sat by Pulse Oximetry: 99 - Blood Pressure Right Arm Blood Pressure: 112/68 Blood Pressure Mean: 82 Blood Pressure Source: Automatic Cuff Medical Screen Scoring (Pre) - Cervical Exam Dilation: 4-7 cm = 2 Effacement: More than 50% = 2 Membranes: Intact - Uterine Contractions Frequency: > 5 minutes apart = 1 Duration: N/A Intensity: N/A - Maternal Vital Signs Maternal Temperature: N/A Maternal Blood Pressure: N/A Signs of Preeclampsia: Nausea/Vomiting = 1 Maternal Respirations: N/A - Maternal Trauma Maternal Trauma: N/A - Assessment - Baby A Baseline FHR: 125 Heart Rate - NICHD Category: Category I (Normal) = 0 NST: Reactive Position: N/A Station: N/A - Total Score - Baby A Total Score - Baby A: 6 - Total Score - Baby B Total Score - Baby B: 6 - Total Score - Baby C Total Score - Baby C: 6 - Level of Risk - Baby A Level of Risk - Baby A: Medium (6-9) - Level of Risk - Baby B Level of Risk - Baby B: Medium (6-9) - Level of Risk - Baby C Level of Risk - Baby C: Medium (6-9) Physician Notification (Pre) - Physician Notified Physician Notified Date: 11/19/19 Physician Notified Time: 13:00 New Order Received: Yes (Cervical recheck in 1hr.) Medical Screen Scoring (Post) - Cervical Exam Dilation: 4-7 cm = 2 Effacement: More than 50% = 2 Membranes: Intact - Uterine Contractions Frequency: > or = 36 weeks =2 Duration: N/A Intensity: N/A - Maternal Vital Signs Maternal Temperature: N/A Maternal Blood Pressure: N/A Signs of Preeclampsia: N/A Maternal Respirations: N/A - Pain Assessment Pain Location and Character: Back, Abdomen, Pelvic Pain Scale Used: Numeric (1 - 10) Pain Intensity: 5 Pain Management Goal: 3 Pain Description: *Acute, Pressure, Sharp, Tightness Pain Radiation Location: none Pain Frequency: Intermittent Pain Duration Units: Minutes Pain Behavior: Vocalization Pain Aggravating Factors: Contractions - Maternal Trauma Maternal Trauma: N/A - Assessment - Baby A Heart Rate: 125 Heart Rate - NICHD Category: Category I (Normal) = 0 NST: Reactive Position: N/A Station: N/A - Total Score Total Score - Baby A: 6 Total Score - Baby B: 6 Total Score - Baby C: 6 - Post Treatment Level of Risk Post Treatment Level of Risk - Baby A: Medium (6-9) Post Treatment Level of Risk - Baby B: Medium (6-9) Post Treatment Level of Risk - Baby C: Medium (6-9) Physician Notification (Post) - Physician Notified Physician Notified Date: 11/19/19 Physician Notified Time: 14:24 Physician/Practitioner Notified:: Judy Spoke With: Judy New Order Received: Yes (Discharge home with no cervical change) - Notification Comment Comment: No cervical change. Pt sent home with follow up instructions. Pt verbalizes understanding. Paperwork given. Disposition - Disposition OB Disposition: Discharge to home Discharge Date: 11/19/19 Discharge Time: 15:00 I agree with the RN Medical Screening Exam: Yes Risk & Benefit of care provided described in d/c instruction: Yes Diagnosis: FALSE LABOR BEFORE 37 COMPLETED WEEKS OF GEST, THIRD TRI
== END 2019-11-19 15:00 | disposition home or self-care (01) ==
LOC: FBPOP 12:31
PROVIDERS: ATTEND Obstetrics & Gynecology
DX: O47.03 False labor before 37 completed weeks of gestation, third trimester (principal); Z3A.36 36 weeks gestation of pregnancy
CPT/HCPCS: 59025; 84112; G0463; 99213

== ENCOUNTER 2019-11-29 23:53 | Outpatient (CLI) | payer OTHER ==
[2019-11-30 00:13] LABS: Glucose,Whole Blood 110 mg/dL (75-99)
[2019-11-30 01:27] VITALS: BP 124/73; PULSE 112; RESP 15; TEMP 97
--- NOTE | 2019-11-30 05:56 | P.MSEPDOC ---
Presenting Problems - Arrival Data Date of Arrival on Unit: 11/29/19 Time of Arrival on Unit: 23:53 Mode of Transport: Ambulatory - Complaint OB-Reason for Admission/Chief Complaint: Possible Onset of Labor Comment: Pt states that she has been having contractions since this afternoon Medical History - Information : 7 Para: 4 Term: 4 : 0 Abortions: Spontaneous or Elective: 2 Number of Living Children: 4 - Gestational Age Gestational Age by EDITH (wks/days): 37 Weeks and 4 Days - History Complications: GDM Review of Systems - Review of Systems Constitutional: No problems Breast: No problems ENT: No problems Cardiovascular: No problems Respiratory: No problems Gastrointestinal: No problems Genitourinary: No problems Musculoskeletal: No problems Neurological: No problems Skin: No problems Vital Signs - Temperature Temperature: 97 F Temperature Source: Temporal Artery Scan - Pulse Pulse Oximetery Pulse Rate: 112 Pulse Assessment Method: Automatic Cuff - Respirations Respiratory Rate: 15 Oxygen Delivery Method: Room Air O2 Sat by Pulse Oximetry: 98 - Blood Pressure Right Arm Blood Pressure: 124/73 Blood Pressure Mean: 90 Blood Pressure Source: Automatic Cuff Medical Screen Scoring (Pre) - Cervical Exam Dilation: 4-7 cm = 2 Effacement: More than 50% = 2 Membranes: Intact - Uterine Contractions Frequency: > 5 minutes apart = 1 Duration: N/A Intensity: N/A - Maternal Vital Signs Maternal Temperature: N/A Maternal Blood Pressure: N/A Signs of Preeclampsia: N/A Maternal Respirations: N/A - Maternal Trauma Maternal Trauma: N/A - Assessment - Baby A Baseline FHR: 125 Heart Rate - NICHD Category: Category I (Normal) = 0 NST: Reactive Position: N/A Station: N/A - Total Score - Baby A Total Score - Baby A: 5 - Total Score - Baby B Total Score - Baby B: 5 - Total Score - Baby C Total Score - Baby C: 5 - Level of Risk - Baby A Level of Risk - Baby A: Low (0-5) - Level of Risk - Baby B Level of Risk - Baby B: Low (0-5) - Level of Risk - Baby C Level of Risk - Baby C: Low (0-5) Physician Notification (Pre) - Physician Notified Physician Notified Date: 11/30/19 Physician Notified Time: 01:00 New Order Received: Yes Disposition - Disposition OB Disposition: Discharge to home, Written follow up instructions reviewed Discharge Date: 11/30/19 Discharge Time: 01:16 I agree with the RN Medical Screening Exam: Yes Risk & Benefit of care provided described in d/c instruction: Yes Diagnosis: FALSE LABOR AT OR AFTER 37 COMPLETED WEEKS OF GESTATION (Patient presented to labor and delivery complaining of contractions. Patient was found not to be in active labor and heart tones were category 1. Of note patient is a gestational diabetic on insulin is not checked her blood sugar since Tuesday has not been taking her insulin.)
== END 2019-11-30 01:29 | disposition home or self-care (01) ==
LOC: FBPOP 23:53
PROVIDERS: ATTEND Obstetrics & Gynecology
DX: O47.1 False labor at or after 37 completed weeks of gestation (principal); Z3A.37 37 weeks gestation of pregnancy
CPT/HCPCS: 59025; G0463; 99213

== ENCOUNTER 2019-12-10 18:09 | Inpatient (IN) | payer OTHER ==
[2019-12-10] MEDS ORDERED: OXYTOCIN 10 UNIT/ML 1 ML VIAL IM PRN (18:21)
[2019-12-10] MEDS ORDERED: METHYLERGONOVINE 0.2 MG/ML 1 ML AMP IM PRN (18:21)
[2019-12-10] MEDS ORDERED: TERBUTALINE 1 MG/ML VIAL SQ PRN (18:21)
[2019-12-10] MEDS ORDERED: LIDOCAINE 0.5% (PF) 5 MG/ML (50 ML SDV) SQ PRN (18:21)
[2019-12-10] MEDS ORDERED: CARBOPROST TROMETHAMINE 250 MCG/ML 1 ML AMP IM PRN (18:21)
[2019-12-10] MEDS ORDERED: LACTATED RINGERS 1,000 ML IV SCH (18:30)
[2019-12-10] MEDS ORDERED: BUTORPHANOL 1 MG/ML 1 ML VIAL IV ONE (18:35)
[2019-12-10 18:57] LABS: Glucose,Whole Blood 102 mg/dL (75-99)
[2019-12-10 19:08] LABS: Basophils # (A) 0.1 k/uL (0-0.2); Basophils % (A) 0 %; Eosinophils # (A) 0.1 k/uL (0-0.7); Eosinophils % (A) 1 %; HCT 45.5 % (34.0-46.0); HGB 15.1 gm/dL (11.4-16.0); Lymphocytes # (A) 2.7 k/uL (1.0-4.8); Lymphocytes % (A) 17 %; MCHC 33.2 g/dL (31.0-37.0); MCV 90.3 fL (80.0-100.0); Mean Platelet Volume 9.9; Monocytes # (A) 0.7 k/uL (0-1.0); Monocytes % (A) 5 %; Neutrophils # (A) 11.7 k/uL (1.3-7.7); Neutrophils % (A) 75 %; Platelet Count 332 k/uL (150-450); RBC 5.03 m/uL (3.80-5.40); RDW 12.3 % (11.5-15.5); WBC 15.5 k/uL (3.8-10.6)
--- NOTE | 2019-12-10 19:23 | P.HPOB ---
History of Present Illness H&P Date: 12/10/19 Chief Complaint: Spontaneous rupture of membranes This is a 29-year-old female 7 para 4 with an estimated date of confinement of 12/17/2019, estimated gestational age of 39-0/7 weeks, who presents to labor and delivery with complaints of spontaneous rupture of membra keyon at approximately 1715. She states she had a large gush of clear fluid. She has been feeling irregular contractions that have become stronger since arrival. Her course has been complicated by gestational diabetes on insulin. She has not taken her insulin approximately 1 week because of difficulties getting her insulin. care has been with Dr. Marinelli. She has also followed with maternal medicine due to the gestational diabetes. She does have some issues with labor at about 33 weeks and was transferred to [facility] in [place] at that time. labs: Hepatitis B surface antigen-negative RPR-nonreactive Rubella-immune Blood type-O+ Antibody screen-negative Abdomen globus-14.1 Toxoplasma screen-negative Random glucose-100 Obstetrical ultrasound-normal anatomy One hour Glucola-216 Obstetrical history: . History of 4 vaginal deliveries at term. All of her pregnancies were complicated by gestational diabetes diet controlled. She also has a history of 2 miscarriages. Social history: Single. Unemployed. Review of Systems Constitutional: Denies chills, Denies fever Eyes: denies blurred vision, denies pain Ears, nose, mouth and throat: Denies headache, Denies sore throat Cardiovascular: Denies chest pain, Denies shortness of breath Respiratory: Denies cough Gastrointestinal: Reports abdominal pain (Contractions), Denies diarrhea, Denies nausea, Denies vomiting Genitourinary: Reports pelvic pain, Reports Musculoskeletal: Reports low back pain Integumentary: Denies pruritus, Denies rash Neurological: Denies numbness, Denies weakness Psychiatric: Denies anxiety, Denies depression Past Medical History Past Medical History: Asthma, Diabetes Mellitus Additional Past Medical History / Comment(s): PCOS. Obstetric history: She has had one elective and one spontaneous , she's had 4 vaginal deliveries. History of Any Multi-Drug Resistant Organisms: None Reported Additional Past Surgical History / Comment(s): arthroscopy rt knee Past Anesthesia/Blood Transfusion Reactions: No Reported Reaction Past Psychological History: Depression Smoking Status: Never smoker Past Alcohol Use History: None Reported Past Drug Use History: None Reported - Past Family History Father Family Medical History: Diabetes Mellitus Medications and Allergies Home Medications Medication Instructions Recorded Confirmed Type RX: INSULIN ASPART (NovoLOG) 8 unit SQ TID-W/MEALS 11/19/19 12/10/19 History [NovoLOG (formulary)] RX: Insulin NPH [humuLIN N] 22 unit SQ HS@2200 11/19/19 12/10/19 History Allergies Allergy/AdvReac Type Severity Reaction Status Date / Time acetaminophen [From Vicodin] AdvReac Abdominal Verified 12/10/19 18:21 Pain hydrocodone [From Vicodin] AdvReac Abdominal Verified 12/10/19 18:21 Pain Exam Osteopathic Statement: *. No significant issues noted on an osteopathic structural exam other than those noted in the History and Physical/Consult. Vital Signs Temp Pulse Resp BP Pulse Ox 12/10/19 18:43 99.1 F 101 H 16 139/71 99 Intake and Output 12/10/19 12/10/19 12/10/19 06:59 14:59 22:59 Other: Weight 96.162 kg HEENT: Within normal limits Heart: Regular rate and rhythm Lungs: Clear to auscultation bilaterally Abdomen: Cervix: On admission is 7 cm/90%/-1 station. Grossly ruptured clear fluid was noted with positive amnisure. heart tones: Reactive with category 1 tracing. Contractions every 1-2 minutes Extremities: Negative Homans Results Result Diagrams: 12/10/19 18:48 Abnormal Lab Results - Last 24 Hours (Table) 12/10/19 12/10/19 Range/Units 18:48 18:54 WBC 15.5 H (3.8-10.6) k/uL Neutrophils # 11.7 H (1.3-7.7) k/uL POC Glucose (mg/dL) 102 H (75-99) mg/dL Assessment and Plan (1) 39 weeks gestation of Current Visit: Yes Status: Acute Code(s): Z3A.39 - 39 WEEKS GESTATION OF SNOMED Code(s): 77342967 (2) Gestational diabetes mellitus (GDM) requiring insulin Current Visit: Yes Status: Acute Code(s): O24.414 - GESTATIONAL DIABETES IN , INSULIN CONTROLLED SNOMED Code(s): 96725943 Plan: Admission for active labor. Expectant management. Will monitor blood sugars.
[2019-12-10] MEDS: OXYTOCIN 20 UNITS/1000 ML NS 1,000 ML IV SCH ×2 (19:50→22:00)
--- NOTE | 2019-12-10 20:02 | P.PROBDLV ---
Vaginal Delivery Note - . Vaginal Delivery Note: The patient progressed to approximately 8-1/2-9 cm and had an uncontrollable urge to push. She began pushing and the cervix did reduce with pushing. Infant's head came to a crown and then delivered across the perineum followed by the anterior shoulder. Nuchal cord times one was reduced around the 's body with delivery. was then placed on mother's abdomen. Cord was clamped and cut. Cord blood was obtained secondary to O+ blood type. Placenta delivered shortly thereafter, intact, with a three-vessel cord. Uterus contracted well after oxytocin was given and uterine massage was carried out. Inspection of the perineum revealed a small second-degree perineal laceration. This area was anesthetized with 1% lidocaine and then sutured with 3-0 and 2-0 Vicryl suture in the usual multilayer fashion. Estimated blood loss is approximately 150 mL's. Both mother and infant are in stable condition.
[2019-12-10] MEDS ORDERED: WITCH HAZEL 1 EACH MED..PAD TOPICAL PRN (20:07)
[2019-12-10] MEDS ORDERED: diphenhydrAMINE 50 MG CAP PO PRN (20:07)
[2019-12-10] MEDS ORDERED: ACETAMINOPHEN TAB 325 MG TAB PO PRN (20:07)
[2019-12-10] MEDS ORDERED: LANOLIN CREAM 5 GM TUBE TOPICAL PRN (20:07)
[2019-12-10] MEDS ORDERED: SIMETHICONE 80 MG CHEWABLE PO PRN (20:07)
[2019-12-10] MEDS ORDERED: diphenhydrAMINE 25 MG CAP PO PRN (20:07)
[2019-12-10] MEDS ORDERED: diphenhydrAMINE 50 MG/ML 1 ML VIAL IVP PRN ×2 (20:07)
[2019-12-10] MEDS ORDERED: HYDROCORTISONE 2.5% RECTAL CREAM 30 GM TUBE RECTAL PRN (20:07)
[2019-12-10] MEDS ORDERED: BENZOCAINE/MENTHOL SPRAY 1 GM/SPRAY AEROSOL TOPICAL PRN (20:07)
[2019-12-10] MEDS ORDERED: ZOLPIDEM 5 MG TAB PO PRN (20:07)
[2019-12-10] MEDS: IBUPROFEN 600 MG TAB PO PRN (20:15)
[2019-12-10] MEDS: SENNOSIDES-DOCUSATE SODIUM 1 EACH TAB PO SCH (21:23)
[2019-12-11 00:54] LABS: Hemoglobin A1C 5.6 % (4.0-6.0)
[2019-12-11 07:01] LABS: Basophils % (A) 0 %; Eosinophils # (A) 0.1 k/uL (0-0.7); Eosinophils % (A) 0 %; HCT 37.5 % (34.0-46.0); HGB 12.6 gm/dL (11.4-16.0); Lymphocytes % (A) 17 %; MCH 30.7 pg (25.0-35.0); MCHC 33.5 g/dL (31.0-37.0); MCV 91.6 fL (80.0-100.0); Mean Platelet Volume 9.3; Monocytes # (A) 1.1 k/uL (0-1.0); Monocytes % (A) 6 %; Neutrophils # (A) 12.9 k/uL (1.3-7.7); Neutrophils % (A) 74 %; Platelet Count 274 k/uL (150-450); RBC 4.09 m/uL (3.80-5.40); RDW 12.4 % (11.5-15.5); WBC 17.4 k/uL (3.8-10.6)
--- NOTE | 2019-12-11 07:59 | P.DS ---
Providers Date of admission: 12/10/19 18:09 Expected date of discharge: 12/11/19 Attending physician: La Marinelli Primary care physician: Stated None - Discharge Diagnosis(es) (1) Normal vaginal delivery Current Visit: Yes Status: Acute Hospital Course: Patient presented in active labor with spontaneous rupture membranes. She underwent normal vaginal delivery. she did have some heavier vaginal bleeding, quantitative blood loss of just over 700. Her hemoglobin dropped from 15-12. She is asymptomatic at this time. She denies nausea, vomiting, chest pain, shortness of breath or calf pain, dizziness with standing. Her lochia is decreasing. She'll be discharged home day #1 in stable condition to follow-up with me in 6 weeks. Plan - Discharge Summary New Discharge Prescriptions: New Ibuprofen [Motrin] 600 mg PO Q6HR PRN #30 tab PRN Reason: Mild Pain Or Fever >= 100.5 No Action Insulin NPH [humuLIN N] 22 unit SQ HS@2200 INSULIN ASPART (NovoLOG) [NovoLOG (formulary)] 8 unit SQ TID-W/MEALS Discharge Medication List INSULIN ASPART (NovoLOG) [NovoLOG (formulary)] 8 unit SQ TID-W/MEALS 11/19/19 [History] Insulin NPH [humuLIN N] 22 unit SQ HS@2200 11/19/19 [History] Ibuprofen [Motrin] 600 mg PO Q6HR PRN #30 tab 12/11/19 [Rx] Follow up Appointment(s)/Referral(s): La Marinelli DO [Doctor of Osteopathic Medicine] - 6 Weeks Discharge Disposition: HOME SELF-CARE
[2019-12-11] MEDS: IBUPROFEN 600 MG TAB PO PRN (08:33)
[2019-12-11] MEDS: SENNOSIDES-DOCUSATE SODIUM 1 EACH TAB PO SCH ×2 (09:06→22:08)
[2019-12-11] MEDS: CITALOPRAM HYDROBROMIDE 20 MG TAB PO SCH (16:08)
[2019-12-12] MEDS: IBUPROFEN 600 MG TAB PO PRN (07:38)
[2019-12-12 07:44] VITALS: RESP 18
[2019-12-12] MEDS: SENNOSIDES-DOCUSATE SODIUM 1 EACH TAB PO SCH (07:44)
[2019-12-12] MEDS: CITALOPRAM HYDROBROMIDE 20 MG TAB PO SCH (10:00)
[2019-12-12 15:57] VITALS: BP 131/81; PULSE 77; TEMP 98.2
== END 2019-12-12 17:12 | disposition home or self-care (01) | DRG 807 ==
LOC: 4FBP 18:09
PROVIDERS: ADMIT Obstetrics & Gynecology; ATTEND Obstetrics & Gynecology
PROC: 10E0XZZ Delivery of Products of Conception, External Approach (ICD-10-PCS; principal; 2019-12-10)
PROC: 0KQM0ZZ Repair Perineum Muscle, Open Approach (ICD-10-PCS; principal; 2019-12-10)
DX: O24.424 Gestational diabetes mellitus in childbirth, insulin controlled (principal); Z37.0 Single live birth; O69.81X0 Labor and delivery complicated by cord around neck, without compression, not applicable or unspecified; O99.52 Diseases of the respiratory system complicating childbirth; J45.909 Unspecified asthma, uncomplicated; O70.1 Second degree perineal laceration during delivery; O99.284 Endocrine, nutritional and metabolic diseases complicating childbirth; E28.2 Polycystic ovarian syndrome; Z3A.39 39 weeks gestation of pregnancy; Z83.3 Family history of diabetes mellitus; Z86.59 Personal history of other mental and behavioral disorders; Z88.6 Allergy status to analgesic agent; Z88.5 Allergy status to narcotic agent; Z79.4 Long term (current) use of insulin
CPT/HCPCS: 59025; 83036; 84112; 85025; 86850; 86900; 86901; 88307; 99213

== ENCOUNTER → 2020-03-12 | Outpatient (CLI) | payer OTHER ==
--- NOTE | 2020-03-12 10:16 | NM ---
EXAMINATION TYPE: NM hepatobiliary w CCK DATE OF EXAM: 03/12/2020 COMPARISON: NONE HISTORY: Right upper quadrant pain TECHNIQUE: After the intravenous administration of 4.4 mCi Tc 99m Mebrofenin hepatobiliary scintigrap hy is performed. Immediate images post injection. FINDINGS: There is satisfactory initial accumulation of tracer by the liver. The gallbladder is visualized wit hin 15 minutes. The small bowel activity is noted within 15 minutes. At one hour CCK was administer ed, patient was injected with 1.8 mcg of Kinevac, and gallbladder ejection fraction is calculated at 100 %, in the normal range. Therefore there is no scintigraphic evidence of cystic or common bile du ct obstruction to suggest acute cholecystitis or gallbladder dyskinesia. IMPRESSION: Findings suggest hypercontractile state.
== END | disposition home or self-care (01) ==
LOC: RADNMMAIN 06:44
PROVIDERS: ATTEND Family Medicine
DX: R10.811 Right upper quadrant abdominal tenderness (principal); R74.0 Nonspecific elevation of levels of transaminase and lactic acid dehydrogenase [LDH]
CPT/HCPCS: 78227; A9537; J2805

== ENCOUNTER → 2020-10-29 | Outpatient (CLI) | payer OTHER ==
--- NOTE | 2020-10-29 18:08 | CONS ---
CONSULTATION DATE OF SERVICE: 10/29/2020 This is a 30-year-old lady who has been evaluated in the sleep center for possible obstructive sleep apnea-hypopnea syndrome. HISTORY OF PRESENT ILLNESS/SLEEP-WAKE EVALUATION: Patient's usual sleep schedule is from 11 p.m. to 7:30 or 7:45 a.m. on weekdays and from 10 or 11 p.m. to 9 or 10 a.m. on weekends. She does have problems with falling asleep, has a TV set in the bedroom. She sleeps in different positions. According to her family, she snores and has episodes of stopped breathing during sleep. In the morning the patient wakes up tired, falling asleep during the day. [place] Sleepiness Scale is in high range of 14. She may take naps 1 or 2 times in the morning and afternoon. Positive history of episodes of depression and anxiety. PAST MEDICAL HISTORY: Positive for asthma, depression, anxiety. PAST SURGICAL HISTORY: Right knee arthroscopic surgery. MEDICATIONS: Albuterol, Celexa. SOCIAL HISTORY: Negative for smoking or using alcohol. FAMILY HISTORY: Hypertension, hyperlipidemia, fibromyalgia, cancer. REVIEW OF SYSTEMS: Multiple awakenings from sleep, sleepiness during the day. No history of hypnagogic hallucinations or sleep paralysis. PHYSICAL EXAMINATION: GENERAL: A pleasant lady without distress. VITAL SIGNS: BP 115/78, HR 85, RR 15, height 5 feet 6-1/4 inches, weight 194.4, temperature 98.3, oxygen saturation at room air 99%. HEENT: PERRLA, EOMI. Evaluation of oropharynx showed tongue protrudes midline. Mallampati II with big uvula. NECK: Supple. No JVD. Thyroid is not palpable. LUNGS: Clear to percussion and to auscultation. Good air exchange. No wheezing or rhonchi. HEART: S1, S2 regular. No murmurs, gallops or rubs. ABDOMEN: Soft and nontender. Bowel sounds are present. No organomegaly appreciated. EXTREMITIES: No clubbing or cyanosis. QUALITY COORDINATOR: Awake, alert, and oriented X3. Cranial nerves 2 to 7 intact. There is no fasciculation or atrophy. noted. No focal deficits observed. IMPRESSION: 1. Snoring, witnessed episodes of stopped breathing during sleep, multiple awakenings from sleep up to 4 times with 2 episodes of nocturia, sleepiness; possible obstructive sleep apnea-hypopnea syndrome. 2. Significant excessive daytime sleepiness. [place] Sleepiness Scale is 14. Differential diagnosis should include hypersomnia, including narcolepsy. 3. Asthma. 4. History of depression. 5. History of anxiety. 6. Status post right knee arthroscopic surgery. PLAN: 1. Polysomnography for evaluation of patient's breathing during sleep. 2. Multiple sleep latency test if the sleep study is negative for obstructive sleep apnea-hypopnea syndrome. 3. CPAP/BiPAP titration if sleep study confirms obstructive sleep apnea-hypopnea syndrome. 4. Preferable position during sleep on the side. 5. No driving if patient feels any sleepiness. 6. I will see patient for follow up visit to explain results of testing and following plan. 7. Psychological techniques for treatment of insomnia which include stimulus control, paradoxical intention, worry time, more bright light exposure in the morning; if necessary, a light machine. Thank you very much for referring this patient for consultation. Sincerely, Lobo Khan MD, PhD, FAASM Diplomat of [employer] Att[employer] [facility] [place] MMODL / IJN: [id number] /
== END | disposition home or self-care (01) ==
LOC: SLEEP 16:43
PROVIDERS: ATTEND Internal Medicine
DX: G47.10 Hypersomnia, unspecified (principal); G47.419 Narcolepsy without cataplexy; J45.909 Unspecified asthma, uncomplicated; Z86.59 Personal history of other mental and behavioral disorders; Z98.890 Other specified postprocedural states
CPT/HCPCS: 99211

== ENCOUNTER 2020-11-01 00:55 | Emergency (ER) | payer OTHER ==
[2020-11-01 01:06] VITALS: BP 157/84; PULSE 73; RESP 20; TEMP 98.4
[2020-11-01] MEDS ORDERED: KETOROLAC 15 MG/ML 1 ML VIAL IM STA (01:20)
--- NOTE | 2020-11-01 01:48 | ED ---
Lower Extremity Injury HPI - General Chief Complaint: Extremity Injury, Lower Stated Complaint: Leg Pain Time Seen by Provider: 11/01/20 01:08 Source: patient Mode of arrival: ambulatory Limitations: no limitations - History of Present Illness Initial Comments: 30yo female presenting for b/l thigh pain x 2 days. pt states she has anterior b/l thigh pain after doing a workout video for the first time in "years" pt states the day that she did the workout she was fine but had extreme pain in the anterior thighs on days 2-3. denies swelling, calf pain, calf swelling, denies coolness, pallor, back pain. Denies weakness, sensation deficits, denies dark urine, changes in urine production. Patient states that it hurts worse when she walks. patient denies falls or direct trauma. patient appear well nontoxic in no acute distress. - Related Data Home Medications Medication Instructions Recorded Confirmed INSULIN ASPART (NovoLOG) [NovoLOG 8 unit SQ TID-W/MEALS 11/19/19 12/10/19 (formulary)] Insulin NPH [humuLIN N] 22 unit SQ HS@2200 11/19/19 12/10/19 Previous Rx's Medication Instructions Recorded Ibuprofen [Motrin] 600 mg PO Q6HR PRN #30 tab 12/11/19 Citalopram Hydrobromide [CeleXA] 20 mg PO DAILY #30 tab 12/12/19 Allergies Allergy/AdvReac Type Severity Reaction Status Date / Time acetaminophen [From Vicodin] AdvReac Abdominal Verified 11/01/20 01:06 Pain hydrocodone [From Vicodin] AdvReac Abdominal Verified 11/01/20 01:06 Pain Review of Systems ROS Statement: Those systems with pertinent positive or pertinent negative responses have been documented in the HPI. ROS Other: All systems not noted in ROS Statement are negative. Past Medical History Past Medical History: Asthma, Diabetes Mellitus Additional Past Medical History / Comment(s): PCOS. Obstetric history: She has had one elective and one spontaneous , she's had 4 vaginal deliveries. History of Any Multi-Drug Resistant Organisms: None Reported Additional Past Surgical History / Comment(s): arthroscopy rt knee Past Anesthesia/Blood Transfusion Reactions: No Reported Reaction Past Psychological History: Depression Smoking Status: Never smoker Past Alcohol Use History: None Reported Past Drug Use History: None Reported - Past Family History Father Family Medical History: Diabetes Mellitus General Exam - General Exam Comments Initial Comments: General: The patient is awake and alert, in no distress Eye: +3 mm pupils are equal, round and reactive to light, extra-ocular movements are intact. No nystagmus. There is normal conjunctiva bilaterally. No signs of icterus. Cardiovascular: There is a regular rate and rhythm. No murmur, rub or gallop is appreciated. Respiratory: Lungs are clear to auscultation, respirations are non-labored, breath sounds are equal. No wheezes, stridor, rales, or rhonchi. Gastrointestinal: Soft, non-distended, non-tender abdomen without masses or org anomegaly noted. There is no rebound or guarding present. Musculoskeletal: Normal inspection of thighs, lower legs and feet b/l. no bruising or skin changes appreciated. Normal ROM, no tenderness. Strength 5/5 of the hips, knees, ankles b/l. Sensation intact of the LE b/l. Radial and DP pulses equal bilaterally 2+. Neurological: A&O x 3. CN II-XII intact grossly, There are no obvious motor or sensory deficits. Coordination appears grossly intact. Speech is normal. Skin: Skin is warm and dry and no rashes or lesions are noted. Psychiatric: Cooperative, appropriate mood & affect, normal judgment. Limitations: no limitations Course Vital Signs 11/01/20 01:02 Temperature 98.4 F Pulse Rate 73 Respiratory 20 Rate Blood Pressure 157/84 O2 Sat by Pulse 99 Oximetry Medical Decision Making - Medical Decision Making b/l thigh pain after exercise. no posterior leg pain or swelling. no anterior swelling, no redness, neurovascularly intct. patient denies falls/ injury. patient ambulatory, normal strength/joint movement.patient discharged was sent back treatment and primary care follow-up patient agreeable to this care plan discharge at this time. Dr. Orozco agreeable to care plan. - Lab Data Lab Results 11/01/20 Range/Units 01:33 Urine Color Yellow Urine Appearance Clear (Clear) Urine pH 5.5 (5.0-8.0) Ur Specific [place] 1.030 (1.001-1.035) Urine Protein Trace H (Negative) Urine Glucose (UA) Negative (Negative) Urine Ketones Negative (Negative) Urine Blood Negative (Negative) Urine Nitrite Negative (Negative) Urine Bilirubin Negative (Negative) Urine Urobilinogen <2.0 (<2.0) mg/dL Ur Leukocyte Esterase Moderate H (Negative) Urine RBC 2 (0-5) /hpf Urine WBC 18 H (0-5) /hpf Ur Squamous Epith Cells 4 (0-4) /hpf Urine Bacteria Rare H (None) /hpf Urine Mucus Few H (None) /hpf Disposition Clinical Impression: Bilateral thigh pain Disposition: HOME SELF-CARE Condition: Good Instructions (If sedation given, give patient instructions): Musculoskeletal Pain (ED) Additional Instructions: Please use medication as discussed. Please follow-up with family doctor in the next 2 days.. Please return to emergency room if the symptoms increase or worsen or for any other concerns. Is patient prescribed a controlled substance at d/c from ED?: No Referrals: Gilbert Sawant DO [Primary Care Provider] - 1-2 days Time of Disposition: 01:50
[2020-11-01 01:55] LABS: Appearance,Urine Clear (Clear); Bacteria,Urine Rare /hpf; Bilirubin,Urine Negative (Negative); Blood,Urine Negative (Negative); Color,Urine Yellow; Glucose,Urine (UA) Negative (Negative); Ketones,Urine Negative (Negative); Leukocyte Esterase,Urine Moderate (Negative); Mucus,Urine Few /hpf; Nitrite,Urine Negative (Negative); PH, Urine 5.5 (5.0-8.0); Protein,Urine Trace (Negative); RBC,Urine 2 /hpf (0-5); Squamous Epithelial Cell,Urine 4 /hpf (0-4); Urobilinogen,Urine <2.0 mg/dL (<2.0); WBC,Urine 18 /hpf (0-5)
== END 2020-11-01 02:19 | disposition home or self-care (01) ==
LOC: EC 00:55
DX: M79.652 Pain in left thigh (principal); M79.651 Pain in right thigh; E11.9 Type 2 diabetes mellitus without complications; Z79.4 Long term (current) use of insulin; Z88.6 Allergy status to analgesic agent; Z88.5 Allergy status to narcotic agent
CPT/HCPCS: 81001; 99283; 96372; J1885

== ENCOUNTER 2020-11-26 21:03 | Emergency (ER) | payer OTHER ==
[2020-11-26 21:09] VITALS: RESP 18; TEMP 98.1
[2020-11-26] MEDS ORDERED: diphenhydrAMINE 50 MG/ML 1 ML VIAL IVP STA (22:20)
[2020-11-26] MEDS ORDERED: KETOROLAC 15 MG/ML 1 ML VIAL IVP STA (22:20)
[2020-11-26] MEDS ORDERED: METOCLOPRAMIDE 5 MG/ML 2 ML VIAL IVP STA (22:20)
[2020-11-26] MEDS ORDERED: SODIUM CHLORIDE 0.9% 1,000 ML IV ONE (22:21)
--- NOTE | 2020-11-26 22:24 | ED ---
Headache HPI - General Chief Complaint: Headache Stated Complaint: Headache Time Seen by Provider: 11/26/20 22:07 Source: patient, RN notes reviewed Mode of arrival: ambulatory Limitations: no limitations - History of Present Illness Initial Comments: This a 30-year-old female presents emergency Department chief complaint of migraine headache. Patient states she has a right-sided headache behind her eye. States it feels like some stabbing. She states is not the worse headache she's ever had. Denies any fevers chills neck pain or neck stiffness. No ocular changes. Patient states her vision is fine no photophobia slight nausea no vomiting no focal weakness no chest pain or shortness breath. - Related Data Home Medications Medication Instructions Recorded Confirmed INSULIN ASPART (NovoLOG) [NovoLOG 8 unit SQ TID-W/MEALS 11/19/19 12/10/19 (formulary)] Insulin NPH [humuLIN N] 22 unit SQ HS@2200 11/19/19 12/10/19 Previous Rx's Medication Instructions Recorded Ibuprofen [Motrin] 600 mg PO Q6HR PRN #30 tab 12/11/19 Citalopram Hydrobromide [CeleXA] 20 mg PO DAILY #30 tab 12/12/19 Allergies Allergy/AdvReac Type Severity Reaction Status Date / Time acetaminophen [From Vicodin] AdvReac Abdominal Verified 11/26/20 21:09 Pain hydrocodone [From Vicodin] AdvReac Abdominal Verified 11/26/20 21:09 Pain Review of Systems ROS Statement: Those systems with pertinent positive or pertinent negative responses have been documented in the HPI. ROS Other: All systems not noted in ROS Statement are negative. Past Medical History Past Medical History: Asthma, Diabetes Mellitus Additional Past Medical History / Comment(s): PCOS. Obstetric history: She has had one elective and one spontaneous , she's had 4 vaginal deliveries. History of Any Multi-Drug Resistant Organisms: None Reported Additional Past Surgical History / Comment(s): arthroscopy rt knee Past Anesthesia/Blood Transfusion Reactions: No Reported Reaction Past Psychological History: Depression Smoking Status: Never smoker Past Alcohol Use History: None Reported Past Drug Use History: None Reported - Past Family History Father Family Medical History: Diabetes Mellitus General Exam Limitations: no limitations General appearance: alert, in no apparent distress Head exam: Present: atraumatic, normocephalic, normal inspection Eye exam: Present: normal appearance, PERRL, EOMI. Absent: scleral icterus, conjunctival injection, periorbital swelling ENT exam: Present: normal exam, normal oropharynx, mucous membranes moist Neck exam: Present: normal inspection, full ROM. Absent: tenderness, meningismus, lymphadenopathy Respiratory exam: Present: normal lung sounds bilaterally, prolonged expiratory. Absent: respiratory distress, wheezes, rales, rhonchi, stridor, decreased breath sounds Cardiovascular Exam: Present: regular rate, normal rhythm, normal heart sounds. Absent: systolic murmur, diastolic murmur, rubs, gallop, clicks Extremities exam: Present: other (Upper and lower extremity strength equal bilaterally 5/5) Neurological exam: Present: alert, oriented X3, CN II-XII intact, normal gait, reflexes normal, other (Finger to nose intact bilaterally). Absent: motor sensory deficit Skin exam: Present: warm, dry, intact, normal color. Absent: rash Course Vital Signs 11/26/20 11/26/20 11/26/20 21:05 22:09 23:42 Temperature 98.1 F Pulse Rate 75 64 70 Respiratory 18 18 18 Rate Blood Pressure 142/96 135/86 114/70 O2 Sat by Pulse 98 99 99 Oximetry - Reevaluation(s) Reevaluation #1: 11/27/20 00:07 Patient reevaluated, resting comfortably states her headache is improved. Medical Decision Making - Medical Decision Making 30-year-old presented for headache. Patient was given any medications she states her headache is greatly improved she is neurovascular intact patient discharged in stable condition. Disposition Clinical Impression: Headache Disposition: HOME SELF-CARE Condition: Stable Instructions (If sedation given, give patient instructions): Acute Headache (ED) Additional Instructions: Please return to the Emergency Department if symptoms worsen or any other concerns. Is patient prescribed a controlled substance at d/c from ED?: No Referrals: Gilbert Sawant DO [Primary Care Provider] - 1-2 days Time of Disposition: 00:07
[2020-11-26] MEDS ORDERED: ORPHENADRINE 30 MG/ML 2 ML VIAL IVP STA (23:28)
[2020-11-26 23:46] VITALS: BP 114/70; PULSE 70
== END 2020-11-27 00:14 | disposition home or self-care (01) ==
LOC: EC 21:03
DX: R51.9 Headache, unspecified (principal); F32.9 Major depressive disorder, single episode, unspecified; J45.909 Unspecified asthma, uncomplicated; E11.9 Type 2 diabetes mellitus without complications; Z88.5 Allergy status to narcotic agent; Z79.4 Long term (current) use of insulin; Z79.1 Long term (current) use of non-steroidal anti-inflammatories (NSAID)
CPT/HCPCS: 99283; 96374; 96375 ×3; 96361; J1200; J2360; J2765; J1885

== ENCOUNTER 2021-11-18 19:05 | Outpatient (CLI) | payer OTHER ==
[2021-11-18 20:14] VITALS: BP 115/65; PULSE 110; RESP 16; TEMP 96.4
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
== END 2021-11-18 20:00 | disposition home or self-care (01) ==
LOC: FBPOP 19:05
PROVIDERS: ATTEND Obstetrics & Gynecology
DX: O36.8130 Decreased fetal movements, third trimester, not applicable or unspecified (principal); Z3A.33 33 weeks gestation of pregnancy; Z88.5 Allergy status to narcotic agent
CPT/HCPCS: 59025; G0463; 99213

== ENCOUNTER 2021-12-01 11:34 | Outpatient (CLI) | payer OTHER ==
[2021-12-01 14:17] VITALS: BP 118/71; PULSE 99; RESP 16; TEMP 97.5
--- NOTE | 2021-12-11 12:39 | P.MSEPDOC ---
Presenting Problems - Arrival Data Date of Arrival on Unit: 12/01/21 Time of Arrival on Unit: 11:35 Mode of Transport: Ambulatory - Complaint OB-Reason for Admission/Chief Complaint: Possible Onset of Labor Comment: contx since 0500 Medical History - Information : 9 Para: 5 Number of Living Children: 5 - Gestational Age Gestational Age by EDITH (wks/days): 35 Weeks and 1 Days Review of Systems - Review of Systems Constitutional: No problems Breast: No problems ENT: No problems Cardiovascular: No problems Respiratory: No problems Gastrointestinal: No problems Genitourinary: No problems Musculoskeletal: No problems Neurological: No problems Skin: No problems Vital Signs - Temperature Temperature: 97.5 F Temperature Source: Axillary - Pulse Right Sitting Brachial Pulse Rate: 99 Pulse Assessment Method: Automatic Cuff - Respirations Respiratory Rate: 16 Oxygen Delivery Method: Room Air O2 Sat by Pulse Oximetry: 99 - Blood Pressure Right Arm Sitting Blood Pressure: 118/71 Blood Pressure Mean: 86 Blood Pressure Source: Automatic Cuff Medical Screen Scoring - Cervical Exam Dilation (cm): 3 Effacement (%): 50 Station: -2 Membranes: Intact - Uterine Contractions Frequency From (mins): 3 Frequency To (mins): 8 Duration From (seconds): 30 Duration To (seconds): 80 Intensity: Moderate Resting: Soft to palpation - Assessment - Baby A Baseline FHR: 140 Heart Rate - NICHD Category: Category I (Normal) NST: Reactive Physician Notification - Physician Notified Physician Notified Date: 12/01/21 Physician Notified Time: 13:00 Physician: Fabiana Kim Order Received: Yes Maternal Triage Index - Maternal Triage Index Presenting for scheduled procedure w/no complaint: No - Stat/Priority 1 Stat Priority 1: No - Urgent/Priority 2 Urgent Priority 2: No - Prompt/Priority 3 Prompt Priority 3: Yes Criteria Met for Priority 3: contx Disposition - Disposition OB Disposition: Discharge to home Discharge Date: 12/01/21 Discharge Time: 14:05 I agree with the RN Medical Screening Exam: Yes Case reviewed; plan agreed upon as documented in EMR&OBIX.: Yes Diagnosis: FALSE LABOR BEFORE 37 COMPLETED WEEKS OF GEST, THIRD TRI
== END 2021-12-01 14:05 | disposition home or self-care (01) ==
LOC: FBPOP 11:34
PROVIDERS: ATTEND Obstetrics & Gynecology
DX: O47.03 False labor before 37 completed weeks of gestation, third trimester (principal); Z3A.35 35 weeks gestation of pregnancy; Z88.5 Allergy status to narcotic agent; Z88.6 Allergy status to analgesic agent
CPT/HCPCS: 59025; G0463; 99213

== ENCOUNTER 2021-12-15 22:30 | Inpatient (IN) | payer OTHER ==
[2021-12-16] MEDS ORDERED: OXYTOCIN 10 UNIT/ML 1 ML VIAL IM PRN (00:06)
[2021-12-16] MEDS ORDERED: LIDOCAINE 1% (PF) 10 MG/ML (30 ML SDV) SQ PRN (00:06)
[2021-12-16] MEDS ORDERED: METHYLERGONOVINE 0.2 MG/ML 1 ML AMP IM PRN (00:06)
[2021-12-16] MEDS ORDERED: TERBUTALINE 1 MG/ML VIAL SQ PRN (00:06)
[2021-12-16] MEDS ORDERED: CARBOPROST TROMETHAMINE 250 MCG/ML 1 ML AMP IM PRN (00:06)
[2021-12-16] MEDS ORDERED: OXYTOCIN 30 UNITS/500 ML NS 30 UNIT in SALINE 1 500ML.BAG IV SCH (00:15)
[2021-12-16 00:36] LABS: Basophils % (A) 0 %; Eosinophils # (A) 0.1 k/uL (0-0.7); Eosinophils % (A) 1 %; HCT 41.8 % (34.0-46.0); HGB 13.6 gm/dL (11.4-16.0); Lymphocytes # (A) 2.5 k/uL (1.0-4.8); Lymphocytes % (A) 19 %; MCH 29.7 pg (25.0-35.0); MCHC 32.5 g/dL (31.0-37.0); MCV 91.3 fL (80.0-100.0); Mean Platelet Volume 8.7; Monocytes # (A) 0.8 k/uL (0-1.0); Monocytes % (A) 6 %; Neutrophils # (A) 9.6 k/uL (1.3-7.7); Neutrophils % (A) 72 %; Platelet Count 333 k/uL (150-450); RBC 4.57 m/uL (3.80-5.40); WBC 13.2 k/uL (3.8-10.6)
--- NOTE | 2021-12-16 01:01 | P.HPOB ---
History of Present Illness H&P Date: 12/16/21 Chief Complaint: Contractions This patient is a pleasant 9 para 5 female estimated date of confinement 01/04/2022 estimated gestational age 37-2/7 weeks who presents to labor and delivery with complaints of contractions. On admission patient is 5 cm dilated and after recheck and 1 hours every 6 hours dilated early labor. Patient's care is per Dr. Marinelli. It appears to be uncomplicated. Patient this time is requesting no epidural or artificial rupture of membranes. heart tones are category 1. Review of Systems Genitourinary: Reports Menstruation: Reports amenorrhea Past Medical History Past Medical History: Asthma, Diabetes Mellitus Additional Past Medical History / Comment(s): PCOS. Obstetric history: She has had one elective and one spontaneous , she's had 5 vaginal deliveries. History of Any Multi-Drug Resistant Organisms: None Reported Additional Past Surgical History / Comment(s): arthroscopy rt knee Past Anesthesia/Blood Transfusion Reactions: No Reported Reaction Past Psychological History: Depression Smoking Status: Never smoker Past Alcohol Use History: None Reported Past Drug Use History: None Reported - Past Family History Father Family Medical History: Diabetes Mellitus Medications and Allergies Home Medications Medication Instructions Recorded Confirmed Type Pnv No.95/Ferrous Fum/Folic AC 1 tab PO DAILY 12/15/21 12/15/21 History [ Multivitamin Tablet] Allergies Allergy/AdvReac Type Severity Reaction Status Date / Time acetaminophen [From Vicodin] AdvReac Abdominal Verified 12/15/21 22:40 Pain hydrocodone [From Vicodin] AdvReac Abdominal Verified 12/15/21 22:40 Pain Exam Vital Signs Temp Pulse Resp BP Pulse Ox 12/16/21 00:06 96.1 F L 113 H 16 113/70 98 Intake and Output 12/15/21 12/15/21 12/16/21 14:59 22:59 06:59 Other: Weight 97.976 kg 97.976 kg - OBG Physical Exam Abdomen: bowel sounds normal, no diffuse tenderness, no bruit present, no guarding noted, no hepatomegaly, no splenomegaly, no mass Vulva: both: normal Vagina: normal moisture, no discharge Cervix: no lesion (Cervix is 6 cm per the RN.), no discharge Uterus: enlarged Results blood work shows she is O positive, rubella immune, RPR nonreactive, hepatitis B negative, HIV is nonreactive, Glucola was 128, most recent growth ultrasound showed estimated weight at 5 lbs. 1 oz. Result Diagrams: 12/16/21 00:15 Abnormal Lab Results - Last 24 Hours (Table) 12/16/21 Range/Units 00:15 WBC 13.2 H (3.8-10.6) k/uL Neutrophils # 9.6 H (1.3-7.7) k/uL Assessment and Plan Assessment: This is a pleasant 31-year-old 9 para 5 female estimated gestational age 37-2/7 weeks presents to labor and delivery with complaints of contractions foun d to be in early labor. Patient does not request any intervention at this time therefore we'll place an IV, continuous monitoring and anticipate vaginal delivery. (1) 37 weeks gestation of Current Visit: Yes Status: Acute Code(s): Z3A.37 - 37 WEEKS GESTATION OF SNOMED Code(s): 51675539 (2) Normal labor Current Visit: Yes Status: Acute Code(s): O80 - ENCOUNTER FOR FULL-TERM UNCOMPLICATED DELIVERY; Z37.9 - OUTCOME OF DELIVERY, UNSPECIFIED SNOMED Code(s): 35176505
[2021-12-16] MEDS: BUTORPHANOL 1 MG/ML 1 ML VIAL IV SCH ×2 (03:59→08:12)
[2021-12-16] MEDS: LACTATED RINGERS 1,000 ML IV SCH ×3 (04:01→08:11)
[2021-12-16] MEDS ORDERED: BUTORPHANOL 1 MG/ML 1 ML VIAL IV PRN (06:01)
--- NOTE | 2021-12-16 06:03 | P.PN ---
Progress Note - Text Progress Note Date: 12/16/21 Patient received one dose of Stadol is now 7 cm dilated. heart tones are reactive. She is agreeable to AROM and this done for clear fluid.
[2021-12-16] MEDS ORDERED: SIMETHICONE 80 MG CHEWABLE PO PRN (10:37)
[2021-12-16] MEDS ORDERED: ACETAMINOPHEN TAB 325 MG TAB PO PRN (10:37)
[2021-12-16] MEDS ORDERED: BENZOCAINE/MENTHOL SPRAY 1 GM/SPRAY AEROSOL TOPICAL PRN (10:37)
[2021-12-16] MEDS ORDERED: diphenhydrAMINE 50 MG CAP PO PRN (10:37)
[2021-12-16] MEDS ORDERED: ZOLPIDEM 5 MG TAB PO PRN (10:37)
[2021-12-16] MEDS ORDERED: HYDROCORTISONE 2.5% RECTAL CREAM 30 GM TUBE RECTAL PRN (10:37)
[2021-12-16] MEDS ORDERED: diphenhydrAMINE 50 MG/ML 1 ML VIAL IVP PRN ×2 (10:37)
[2021-12-16] MEDS ORDERED: LANOLIN CREAM 5 GM TUBE TOPICAL PRN (10:37)
[2021-12-16] MEDS ORDERED: diphenhydrAMINE 25 MG CAP PO PRN (10:37)
[2021-12-16] MEDS: IBUPROFEN 600 MG TAB PO PRN ×2 (11:28→20:00)
[2021-12-16] MEDS ORDERED: ROPIVACAINE 100 MG, fentaNYL (PF). 200 MCG in SODIUM CHLORIDE 0.9% 76 ML EPIDURAL ONE (12:31)
[2021-12-16] MEDS: SENNOSIDES-DOCUSATE SODIUM 1 EACH TAB PO SCH (21:24)
[2021-12-17] MEDS: IBUPROFEN 600 MG TAB PO PRN ×2 (04:35→12:31)
[2021-12-17 05:35] VITALS: TEMP 98.1
--- NOTE | 2021-12-17 07:19 | P.PROBDLV ---
Vaginal Delivery Note - . Vaginal Delivery Note: This patient is a pleasant 9 para 5 female estimated date of confinement 01/04/2022 estimated gestational age 37-2/7 weeks who presents to labor and delivery with complaints of contractions. On admission patient is 5 cm dilated and after recheck and 1 hours every 6 hours dilated early labor. Category 1 heart tones. Amniotomy performed at 6:10 AM and clear fluid noted. After a couple more hours she still was not making cervical change past 7 cm. Epi dural was given for pain control and Pitocin augmentation was started. Her cervix was completely dilated delivered after 9 AM. She pushed, delivered a viable male over intact perineum under epidural anesthesia at 9:32 AM. Head delivered OA, nuchal cord 2 easily reduced, anterior shoulder delivered gentle downward guidance followed by posterior shoulder and rest of body. Nose and mouth bulb suctioned, cord clamped and cut, infant placed mother's abdomen. Apgars 9, 9, weight 7 lbs. 7 oz. Placenta delivered spontaneously, intact with three-vessel cord soon thereafter. Vagina, cervix, perineum inspected. No lacerations or. Estimated blood loss 150 mL. Mother and baby in stable condition.
--- NOTE | 2021-12-17 07:21 | P.DS ---
Providers Date of admission: 12/15/21 23:59 Expected date of discharge: 12/17/21 Attending physician: La Marinelli Primary care physician: Stated None - Discharge Diagnosis(es) (1) Normal vaginal delivery Current Visit: No Status: Acute Hospital Course: Patient presented in active labor. She underwent a normal vaginal delivery with Pitocin augmentation and epidural. her bleeding is decreasing and her cramping is minimal. She denies nausea, vomiting, chest pain, shortness of breath or any calf pain. Patient will be discharged home day #1 in stable condition to follow-up with me in 6 weeks. Plan - Discharge Summary New Discharge Prescriptions: New Ibuprofen [Motrin] 600 mg PO Q6HR PRN #30 tab PRN Reason: Mild Pain (Scale 1 To 3) No Action Pnv No.95/Ferrous Fum/Folic AC [ Multivitamin Tablet] 1 tab PO DAILY Discharge Medication List Pnv No.95/Ferrous Fum/Folic AC [ Multivitamin Tablet] 1 tab PO DAILY 12/15/21 [History] Ibuprofen [Motrin] 600 mg PO Q6HR PRN #30 tab 12/17/21 [Rx] Follow up Appointment(s)/Referral(s): La Marinelli DO [Doctor of Osteopathic Medicine] - 01/25/22 11:15 am Discharge Disposition: HOME SELF-CARE
[2021-12-17 07:25] LABS: Basophils # (A) 0.1 k/uL (0-0.2); Basophils % (A) 1 %; Eosinophils # (A) 0.2 k/uL (0-0.7); Eosinophils % (A) 1 %; HCT 37.2 % (34.0-46.0); HGB 12.1 gm/dL (11.4-16.0); Lymphocytes # (A) 2.2 k/uL (1.0-4.8); Lymphocytes % (A) 17 %; MCH 29.9 pg (25.0-35.0); MCHC 32.6 g/dL (31.0-37.0); MCV 91.8 fL (80.0-100.0); Mean Platelet Volume 8.6; Monocytes # (A) 0.8 k/uL (0-1.0); Monocytes % (A) 6 %; Neutrophils # (A) 9.6 k/uL (1.3-7.7); Neutrophils % (A) 73 %; Platelet Count 259 k/uL (150-450); RBC 4.05 m/uL (3.80-5.40); RDW 12.5 % (11.5-15.5); WBC 13.1 k/uL (3.8-10.6)
[2021-12-17] MEDS: SENNOSIDES-DOCUSATE SODIUM 1 EACH TAB PO SCH (08:39)
[2021-12-17 10:33] VITALS: BP 105/63; PULSE 90; RESP 18
--- NOTE | 2021-12-18 06:31 | P.MSEPDOC ---
Presenting Problems - Arrival Data Date of Arrival on Unit: 12/16/21 Time of Arrival on Unit: 00:10 Mode of Transport: Ambulatory - Complaint OB-Reason for Admission/Chief Complaint: Possible Onset of Labor Comment: Patient arrives to triage stating she is having contractions every six. minutes since 530pm. Patient is a , all previous vaginal deliveries. Patient was 3cm. dilitated last . Medical History - Information : 9 Para: 5 Term: 5 : 0 Abortions: Spontaneous or Elective: 2 Number of Living Children: 5 - Gestational Age Gestational Age by EDITH (wks/days): 37 Weeks and 2 Days Review of Systems - Review of Systems Constitutional: No problems Breast: No problems ENT: No problems Cardiovascular: No problems Respiratory: No problems Gastrointestinal: No problems Genitourinary: No problems Musculoskeletal: No problems Neurological: No problems Skin: No problems Vital Signs - Temperature Temperature: 98.1 F Temperature Source: Axillary - Pulse Right Brachial Pulse Rate: 90 Pulse Assessment Method: Pulse Oximetry - Respirations Respiratory Rate: 18 Oxygen Delivery Method: Room Air O2 Sat by Pulse Oximetry: 98 - Blood Pressure Right Arm Blood Pressure: 105/63 Blood Pressure Mean: 77 Blood Pressure Source: Automatic Cuff Medical Screen Scoring - Cervical Exam Dilation (cm): 5 Effacement (%): 70 Station: -2 Membranes: Intact - Uterine Contractions Frequency From (mins): 8 Frequency To (mins): 15 Duration From (seconds): 40 Duration To (seconds): 80 Intensity: Mild Resting: Soft to palpation - Assessment - Baby A Baseline FHR: 135 Heart Rate - NICHD Category: Category I (Normal) Physician Notification - Physician Notified Physician Notified Date: 12/16/21 Physician Notified Time: 23:50 Physician: Ricardo Winters New Order Received: Yes - Notification Comment Comment: RN phoned Dr. Winters and reported that patient is a , 37 1/7 weeks, and. presented with contractions. Patient was initially checked and was 5cm dilitated. After. one hour re-check patient was 6cm. Contractions are sporadic, patient states she does. not want an epidural. Dr. Winters states to admit patient into a labor suite and he will. be coming in. Maternal Triage Index - Maternal Triage Index Presenting for scheduled procedure w/no complaint: No - Stat/Priority 1 Stat Priority 1: No - Urgent/Priority 2 Urgent Priority 2: No - Prompt/Priority 3 Prompt Priority 3: No - Non-Urgent/Priority 4 Non-Urgent Priority 4: Yes Criteria Met for Priority 4: >37 weeks with early labor signs Disposition - Disposition OB Disposition: Admit Transferred to:: [address] Discharge Date: 12/17/21 Discharge Time: 14:05 I agree with the RN Medical Screening Exam: Yes Case reviewed; plan agreed upon as documented in EMR&OBIX.: Yes Diagnosis: ENCOUNTER FOR FULL-TERM UNCOMPLICATED DELIVERY
== END 2021-12-17 14:05 | disposition home or self-care (01) | DRG 805 ==
LOC: FBPOP 22:30 → 4FBP 23:59
PROVIDERS: ADMIT Obstetrics & Gynecology; ATTEND Obstetrics & Gynecology
PROC: 10E0XZZ Delivery of Products of Conception, External Approach (ICD-10-PCS; principal; 2021-12-17)
PROC: 10907ZC Drainage of Amniotic Fluid, Therapeutic from Products of Conception, Via Natural or Artificial Opening (ICD-10-PCS; 2021-12-17)
PROC: 4A0HXCZ Measurement of Products of Conception, Cardiac Rate, External Approach (ICD-10-PCS; 2021-12-17)
PROC: 3E033VJ Introduction of Other Hormone into Peripheral Vein, Percutaneous Approach (ICD-10-PCS; 2021-12-17)
DX: O69.81X0 Labor and delivery complicated by cord around neck, without compression, not applicable or unspecified (principal); O24.12 Pre-existing type 2 diabetes mellitus, in childbirth; Z37.0 Single live birth; J45.909 Unspecified asthma, uncomplicated; O99.284 Endocrine, nutritional and metabolic diseases complicating childbirth; E28.2 Polycystic ovarian syndrome; O99.344 Other mental disorders complicating childbirth; O99.52 Diseases of the respiratory system complicating childbirth; F32.A Depression, unspecified; Z3A.37 37 weeks gestation of pregnancy; Z83.3 Family history of diabetes mellitus; Z88.5 Allergy status to narcotic agent; Z87.59 Personal history of other complications of pregnancy, childbirth and the puerperium
CPT/HCPCS: 59025; 85025; 86850; 86900; 86901; 99213

== ENCOUNTER → 2022-03-02 | Outpatient (CLI) | payer OTHER ==
[2022-03-02 22:52] LABS: Basophils # (A) 0.06 X 10*3/uL (0.00-0.10); Basophils % (A) 0.8 %; Eosinophils # (A) 0.09 X 10*3/uL (0.04-0.35); Eosinophils % (A) 1.1 %; HCT 44.6 % (37.2-46.3); HGB 14.8 g/dL (12.0-15.0); Immature Grans, Automated 0.3 %; Lymphocytes # (A) 2.16 X 10*3/uL (0.90-5.00); Lymphocytes % (A) 27.6 %; MCH 28.5 pg (27.0-32.0); MCHC 33.2 g/dL (32.0-37.0); MCV 85.8 fL (80.0-97.0); Mean Platelet Volume 11.4 fL (9.5-12.2); Monocytes # (A) 0.47 X 10*3/uL (0.20-1.00); NRBC Per 100 WBC 0 /100 WBCS (0.0-0.0); Neutrophils # (A) 5.04 X 10*3/uL (1.80-7.70); Neutrophils % (A) 64.2 %; Platelet Count 298 X 10*3/uL (140-440); RDW 12.4 % (11.5-14.5); WBC 7.84 X 10*3/uL (4.50-10.00)
== END | disposition home or self-care (01) ==
LOC: LABPAT 15:04
PROVIDERS: ATTEND Obstetrics & Gynecology
DX: Z01.812 Encounter for preprocedural laboratory examination (principal)
CPT/HCPCS: 85025

== ENCOUNTER → 2022-03-11 | Day surgery (SDC) | payer OTHER ==
[2022-03-10 13:55] VITALS: BMI 32.8
[~2022-03-11] MED LIST: BUPIVACAINE (PF) 0.25% 30 ML VIAL SQ ONE; DEXAMETHASONE SOD PHOSPHATE 4 MG/ML 1 ML VIAL IV ONE; GLYCOPYRROLATE 0.2 MG/ML 2 ML VIAL ONE; KETOROLAC 15 MG/ML 1 ML VIAL ONE; LACTATED RINGERS 1,000 ML IV ONE; LACTATED RINGERS 1,000 ML IV SCH; LIDOCAINE 2% INJ 20 MG/ML (2 ML VIAL) ONE; MIDAZOLAM 2 MG/2 ML VIAL ONE; NEOSTIGMINE 1 MG/ML 10 ML VIAL ONE; ONDANSETRON 4 MG/2 ML VIAL IVP ONE; PROPOFOL 10 MG/ML 20 ML VIAL IV ONE; Pre Op ABX Message 1 EACH MISC MISCELLANE ONE; ROCURONIUM 10 MG/ML (5 ML VIAL) IV ONE; SUCCINYLCHOLINE CHLORIDE 100 MG/5 ML SYR IV ONE; fentaNYL (PF) 50 MCG/ML 2 ML AMP IV PRN; fentaNYL (PF) 50 MCG/ML 2 ML AMP ONE
--- NOTE | 2022-03-11 05:45 | P.HPOB ---
History of Present Illness H&P Date: 03/11/22 Chief Complaint: family planning 31 year old presents for laparoscopic tubal ligation. Review of Systems All systems: negative Constitutional: Denies chills, Denies fever Eyes: denies blurred vision, denies pain Ears, nose, mouth and throat: Denies headache, Denies sore throat Cardiovascular: Denies chest pain, Denies shortness of breath Respiratory: Denies cough Gastrointestinal: Denies abdominal pain, Denies diarrhea, Denies nausea, Denies vomiting Genitourinary: Denies dysuria, Denies hematuria Musculoskeletal: Denies myalgias Integumentary: Denies pruritus, Denies rash Neurological: Denies numbness, Denies weakness Psychiatric: Denies anxiety, Denies depression Endocrine: Denies fatigue, Denies weight change Past Medical History Past Medical History: Asthma History of Any Multi-Drug Resistant Organisms: None Reported Additional Past Surgical History / Comment(s): arthroscopy rt knee, LAPAROSCOPIC SURGERY-EXPLORATORY Past Anesthesia/Blood Transfusion Reactions: No Reported Reaction Smoking Status: Never smoker Past Drug Use History: Marijuana - Past Family History Father Family Medical History: Diabetes Mellitus Medications and Allergies Home Medications Medication Instructions Recorded Confirmed Type Ibuprofen [Motrin] 600 mg PO Q6HR PRN #30 tab 12/17/21 Rx Allergies Allergy/AdvReac Type Severity Reaction Status Date / Time acetaminophen [From Vicodin] AdvReac Abdominal Verified 03/10/22 13:34 Pain hydrocodone [From Vicodin] AdvReac Abdominal Verified 03/10/22 13:34 Pain Exam Osteopathic Statement: *. No significant issues noted on an osteopathic structural exam other than those noted in the History and Physical/Consult. Intake and Output 03/10/22 03/10/22 03/11/22 14:59 22:59 06:59 Other: Weight 89.358 kg Heart: RRR Lungs: CTAB Abdomen: soft, nontender Extremeties: neg rosa's Assessment and Plan (1) Family planning Status: Acute Code(s): Z30.09 - ENCOUNTER FOR OTH GENERAL CNSL AND ADVICE ON CONTRACEPTION SNOMED Code(s): 375222209 Plan: 1. laparoscopic tubal ligation
--- NOTE | 2022-03-11 10:09 | P.OP ---
Date of Procedure: 03/11/22 Preoperative Diagnosis: 1. Family planning Postoperative Diagnosis: 1. Family planning Procedure(s) Performed: Laparoscopic tubal ligation Anesthesia: AV Surgeon: La Marinelli Estimated Blood Loss (ml): 2 IV fluids (ml): 500 Urine output (ml): 20 Pathology: none sent Condition: stable Disposition: PACU Operative Findings: Oral uterus, tubes, ovaries. Uterus sounded to 10 cm. Description of Procedure: Patient was taken to the operating room where general anesthesia was obtained without difficulty. She was prepped and draped in normal sterile fashion in the dorsal lithotomy position, legs placed in the Cedrick stirrups. Bladder drained of all urine. Kirwin speculum placed in the vagina and the anterior lip the cervix was grasped with single-tooth tenaculum. The uterus is sounded to 10 cm and the kroner manipulator was placed. Attention was then turned to the abdomen and gloves were changed. A 10 mm infraumbilical incision was made the scalpel and 10 mm optical trocar was placed under direct visualization. A 5 mm suprapubic Incision was made and a 5 mm optical trocar was placed under direct visualization. Survey of the pelvis revealed normal uterus tubes and ovaries. The left fallopian tube was grasped with a Kleppinger and fulgurated 2-3 cm on this side in the ampullar portion. The right fallopian tube was grasped with a Kleppinger and fulgurated 2-3 cm in the ampullar portion. All instruments were then removed from the abdomen and vagina. The 10 mm infraumbilical incision was closed 4-0 Vicryl in a subcuticular fashion. The 5 mm incision was closed with 4-0 Vicryl in a subcuticular fashion. Patient tolerated procedure well, sponge and instrument counts correct 2 and she was taken to recovery room in stable condition.
[2022-03-11 10:23] VITALS: TEMP 97
[2022-03-11 11:27] VITALS: RESP 16
[2022-03-11 11:35] VITALS: BP 108/72; PULSE 56
== END | disposition home or self-care (01) ==
LOC: OR 07:50
PROVIDERS: ATTEND Obstetrics & Gynecology
DX: Z30.2 Encounter for sterilization (principal); J45.909 Unspecified asthma, uncomplicated; Z83.3 Family history of diabetes mellitus; Z88.5 Allergy status to narcotic agent; Z88.6 Allergy status to analgesic agent
CPT/HCPCS: 81025; 58670; J2250; J1100; J2710; J2405; J3010; J1885; J0330; J2704; J2001

== ENCOUNTER → 2022-05-25 | Outpatient (CLI) | payer OTHER ==
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
== END | disposition home or self-care (01) ==
LOC: RADXRYALE 09:31
PROVIDERS: ATTEND Family Medicine
DX: M25.531 Pain in right wrist (principal); M79.631 Pain in right forearm; R20.2 Paresthesia of skin; Z87.828 Personal history of other (healed) physical injury and trauma

== ENCOUNTER → 2022-12-30 | Outpatient (CLI) | payer OTHER ==
--- NOTE | 2022-12-30 11:36 | XR ---
EXAMINATION TYPE: XR Hip Complete RT DATE OF EXAM: 12/30/2022 COMPARISON: None HISTORY: Pain TECHNIQUE: 2 view right hip FINDINGS: Femoral head articulates with the acetabulum. No acute fracture or dislocation is evident. Follow-up exams can be performed as clinically indicated. IMPRESSION: 1. Normal 2 view right hip
== END | disposition home or self-care (01) ==
LOC: RADXRYALE 10:15
PROVIDERS: ATTEND Family Medicine
DX: M25.551 Pain in right hip (principal)
CPT/HCPCS: 73502

== ENCOUNTER 2024-01-31 19:22 | Emergency (ER) | payer OTHER ==
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
[2024-01-31 21:57] VITALS: BP 118/62; PULSE 78; RESP 22; TEMP 98.2
== END 2024-01-31 21:44 | disposition home or self-care (01) ==
LOC: EC 19:22
DX: R07.89 Other chest pain (principal); M25.562 Pain in left knee; M25.512 Pain in left shoulder; R51.9 Headache, unspecified; M54.2 Cervicalgia; Z88.6 Allergy status to analgesic agent; Z88.5 Allergy status to narcotic agent; V43.52XA Car driver injured in collision with other type car in traffic accident, initial encounter; Y92.410 Unspecified street and highway as the place of occurrence of the external cause
CPT/HCPCS: 71046; 72050; 93005; 99284

== ENCOUNTER → 2024-09-05 | Outpatient (CLI) | payer OTHER ==
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
== END | disposition home or self-care (01) ==
LOC: RADMRIMAIN 16:41
PROVIDERS: ATTEND Family Medicine
DX: M50.30 Other cervical disc degeneration, unspecified cervical region (principal); R20.2 Paresthesia of skin; M62.81 Muscle weakness (generalized); H53.30 Unspecified disorder of binocular vision; R90.82 White matter disease, unspecified
CPT/HCPCS: 70551; 72141